=== PATIENT | female | born 1930 | race Caucasian/White ===

== ENCOUNTER 2017-10-06 07:50 | Observation (INO) ==
[2017-10-06] MEDS ORDERED: HYDROMORPHONE 2 MG/ML INJECTION IVP ONE (08:39)
[2017-10-06] MEDS ORDERED: SALINE FLUSH 10ml SYRINGE IVF PRN (08:41)
--- NOTE | 2017-10-06 09:13 | XRay Report ---
Indication: fall PROCEDURE: AP and Lateral views of the Right Femur Encounter: Initial Comparison: None Findings: There is slight cortical irregularity along the lateral cortex just below the greater trochanter seen on the AP view. This could represent a nondisplaced fracture or chronic changes from old trauma. Hip replacement appears intact. Impression: Possible nondisplaced fracture of the lateral cortex just below the greater trochanter. .
--- NOTE | 2017-10-06 09:14 | XRay Report ---
Indication: fall PROCEDURE: XR pelvis 1-2V: Encounter: Initial Comparison: Right femur radiographs from the same time Findings: Cortical irregularity along the lateral margin of the right proximal femur just below the greater trochanter. No additional area concerning for acute fracture. Bilateral hip replacements are intact. Impression: Possible nondisplaced fracture versus changes of old trauma in the lateral subtrochanteric cortex of the right femur. .
--- NOTE | 2017-10-06 09:15 | XRay Report ---
Indication: fall PROCEDURE: XR tib/fib RT 2V: Encounter: Initial Comparison: None Findings: There is no acute fracture, dislocation or malalignment identified. Visualized knee prosthesis appears intact. Impression: No acute osseous abnormality. .
--- NOTE | 2017-10-06 10:12 | Emergency Department Report ---
Fall HPI - General Chief Complaint: Fall Stated Complaint: fall Time Seen by Provider: 10/06/17 08:03 - History of Present Illness HPI Narrative: 7-year-old female with fall this morning. She alleges restroom and fell. She does live at [facility]. Pain in right hip, brought in by EMS on a slider board with knees banded together around the patella. She has external rotation of right leg when the pieces of cloth are removed. No other injury or complaint , except for right shoulder pain. She is able to move the arm, but unable to lift her leg due to the pain. She has had previous right hip replacement and bilateral knee replacements. - Related Data Home Medications Medication Instructions Recorded Confirmed Allopurinol 100 mg PO DAILY #0 09/09/11 10/06/17 Insulin Glargine,Hum.rec.anlog 25 unit SQ AC #0 vial 08/11/14 10/06/17 [Lantus] Acetaminophen [Acetaminophen Extra 500 mg PO TID 09/20/17 10/06/17 Strength] Bumetanide Tab [Bumex Tab] 1 mg PO BID 09/20/17 10/06/17 Carvedilol [Coreg] 12.5 mg PO BIDWM 09/20/17 10/06/17 Cholecalciferol (Vitamin D3) 2,000 unit PO DAILY 09/20/17 10/06/17 [Vitamin D3] Digoxin 125 mcg PO 3XW 09/20/17 10/06/17 Levothyroxine Tab [Synthroid] 100 mcg PO ACB 09/20/17 10/06/17 Mag-Al + Sim Oral Liq [Maalox Plus] 30 ml PO Q4HR PRN 09/20/17 10/06/17 Melatonin/Pyridoxine HCl (B6) 6 mg PO HS 09/20/17 10/06/17 [Melatonin 3 mg Tablet] Multi-Vitamin Plain [Theragran] 1 tab PO DAILY 09/20/17 10/06/17 Nystatin Powder [Mycostatin] 1 applicatio TP PRN PRN 09/20/17 10/06/17 Simvastatin [Zocor] 10 mg PO HS 09/20/17 10/06/17 warfarin 4 mg tablet See Label Instructions PO .COMPLEX 09/24/17 10/06/17 Spironolactone [Aldactone] 25 mg PO 3XW 10/06/17 10/06/17 Previous Rx's Medication Instructions Recorded [place] 5 mg-acetaminophen 325 mg 1 tab PO AM #30 tab 10/03/17 tablet Allergies Allergy/AdvReac Type Severity Reaction Status Date / Time losartan Allergy Verified 10/06/17 07:59 gabapentin AdvReac Intermediate dizziness, Verified 04/23/17 16:44 swelling in feet influenza virus vaccine, AdvReac Intermediate Flu-like Verified 10/06/17 07:59 specific Symptoms carvedilol AdvReac Unknown Nausea and Verified 04/23/17 16:44 Vomiting ciprofloxacin AdvReac Unknown Nausea and Verified 10/06/17 07:59 Vomiting, Weight loss diltiazem AdvReac Unknown Nausea and Verified 10/06/17 07:59 Vomiting indomethacin AdvReac Unknown Nausea and Verified 10/06/17 07:59 Vomiting oxycodone AdvReac Unknown Nausea and Verified 04/23/17 16:44 Vomiting sitagliptin [From Januvia] AdvReac Unknown Nausea and Verified 10/06/17 07:59 Vomiting Sulfa (Sulfonamide AdvReac Unknown Nausea and Unverified 04/23/17 16:44 Antibiotics) Vomiting benazepril AdvReac Nausea and Verified 10/06/17 07:59 vomiting metoprolol [From Toprol XL] AdvReac Nausea and Verified 04/23/17 16:46 vomiting Review of Systems All systems: reviewed and negative except as stated PFSH Patient Stated Medical History Cardiac Arrhythmia Yes: afib Hypertension Yes Other Cardiology Yes: mitral insufficiency Sleep Apnea Yes Diabetes Mellitus Type 2 Yes Hx Renal Disease Yes Osteoarthritis Yes Other Musculoskeletal Yes: gout Cellulitis Yes: lower legs Clinic Medical History (Last Reviewed 09/16/17 @ 16:42 by PRITESH Johnson) Chronic anxiety (Chronic Medical) Sleep apnea (Chronic Medical) Hypothyroid (Chronic Medical) Hypercholesterolemia (Chronic Medical) Type 2 diabetes mellitus (Chronic Medical) Benign essential hypertension (Chronic Medical) Paroxysmal atrial fibrillation (Chronic Medical) Anticoagulated on warfarin (Chronic Medical) Gout (Chronic Medical) Meniere's disease (Chronic Medical) Metabolic syndrome (Chronic Medical) Sleep apnea (Chronic Medical) Chronic kidney disease, stage 3 (Inactive Medical) Congestive heart failure (Inactive Medical) Family History: Family History (Last Reviewed 09/16/17 @ 16:42 by PRITESH Johnson) Sister , Age 93 Anticoagulated on warfarin Paroxysmal atrial fibrillation Mother , Age 90 Heart disease Hip fracture Father , age 65 Myocardial infarction Brother , Age 72 Myocardial infarction - Social History Smoking status: Never smoker Substance use type: does not use Physical Exam - Limitations Limitations: no limitations - General General appearance: alert, in distress (pain) - Normal Exams: Head:: Normocephalic without trauma Chest/Respirations:: Clear all don, with good airflow, and symmetry bilaterally Cardiovascular:: Regular rate and rhythm, without murmur or gallop, Pulses 2+ all extremities, capillary refill, <2 seconds all extremities Abdomen:: Bowel sounds positive, soft, non-tender, non-distended, no hepatosplenomegaly, masses or bruits noted Neurological:: Patient is alert, and oriented, cranial nerves, motor/sensory/ cerebellar, exams w/o gross deficits, to observation Psychiatric:: Patient exhibits, appropriate attention, emotion and affect - Expanded Lower Extremity Exam right Hip/Pelvis exam: Present: tenderness, erythema, external rotation. Absent: full ROM, swelling, abrasion, laceration, ecchymosis, deformity, crepitus, dislocation Course Vital Signs Temperature 97.6 F 10/06/17 07:59 Pulse Rate 74 10/06/17 07:59 Respiratory Rate 19 10/06/17 07:59 Blood Pressure 126/58 10/06/17 07:59 Pulse Oximetry 96 10/06/17 07:59 Temperature 97.6 F 10/06/17 07:59 Pulse Rate 66 10/06/17 09:30 Respiratory Rate 14 10/06/17 09:30 Blood Pressure 115/53 10/06/17 09:30 Pulse Oximetry 92 10/06/17 09:[address] [facility] Narrative Medical decision making narrative: X-ray shows likely intertrochanteric fracture, CT of hip shows definite comminuted fracture. I spoke with orthopedics and this will require quite a involved procedure, they would like to try and heal with rest and minimal weightbearing. Patient was given 0.5 mg Dilaudid for pain management via IV. I spoke with hospitalist who is willing to accept patient and will admit her for care. She has mildly elevated creatinine at 1.8 and mildly elevated bilirubin. - Lab Data Attestation: I reviewed the patient's lab results. Result diagrams: 10/06/17 08:38 10/06/17 08:38 Lab Results 10/06/17 10/06/17 Range/Units 08:38 08:38 WBC 5.1 (4.5-11.0) T/MM3 RBC 3.77 L (4.00-5.20) M/MM3 Hgb 11.9 L (12-16) GM/DL Hct 37.1 (36-46) % MCV 98.4 (80-100) UM3 MCH 31.6 (26-34) UUG MCHC 32.1 (31-37) GM/DL RDW Std Deviation 51.6 H (36.9-50.2) FL Plt Count 78 L (130-400) T/MM3 MPV 10.3 (9.4-12.4) UM3 Neutrophils % (Manual) 61.0 (33-66) % Band Neutrophils % 9.0 H (0-6) % Lymphocytes % (Manual) 14.0 L (23-45) % Monocytes % (Manual) 10.0 H (0-9.0) % Eosinophils % (Manual) 5.0 H (0-4) % Basophils % (Manual) 1.0 (0-2) % Neutrophils # (Manual) 3.1 (1.8-7.7) T/MM3 Band Neutrophils # 0.5 T/MM3 Lymphocytes # (Manual) 0.7 L (1-4.8) T/MM3 Monocytes # (Manual) 0.5 (0-0.8) T/MM3 Eosinophils # (Manual) 0.3 (0-0.5) T/MM3 Basophils # (Manual) 0.1 (0-0.2) T/MM3 RBC Morph Comment Normal Turbidity < 20 (0-20) Sodium 137 (134-144) MEQ/L Potassium 4.1 (3.6-5) MEQ/L Chloride 93 L (98-107) MEQ/L Carbon Dioxide 36 H (22-30) MEQ/L Anion Gap 8 (5-15) MEQ/L BUN 49.0 H (7-17) MG/DL Creatinine 1.8 H (0.7-1.2) MG/DL GFR Calculation 26 BUN/Creatinine Ratio 27 H (6-26) RATIO Glucose 278 H (65-110) MG/DL Calculated Osmolality 287 H (261-280) MOSM/KG Calcium 9.8 (8.4-10.2) MG/DL Total Bilirubin 1.80 H (0.20-1.30) MG/DL Icterus Index < 2 (0-7) AST 55 H (14-36) U/L ALT 41 (9-52) U/L Alkaline Phosphatase 161 H (38-126) U/L Total Protein 8.4 H (6.3-8.2) G/DL Albumin 4.1 (3.5-5.0) G/DL Globulin 4.3 H (2.4-3.6) G/DL Albumin/Globulin Ratio 1.0 L (1.1-2.2) RATIO Specimen Hemolysis < 15 (0-25) - Radiology Data Attestation: I reviewed the patient's radiology results. Disposition Clinical Impression: Hip fracture, right, Renal insufficiency, Paroxysmal atrial fibrillation Disposition: 02 To [facility] Condition: Stable Prescriptions: No Action Allopurinol 100 mg PO DAILY #0 Insulin Glargine,Hum.rec.anlog [Lantus] 25 unit SQ AC #0 vial Multi-Vitamin Plain [Theragran] 1 tab PO DAILY Carvedilol [Coreg] 12.5 mg PO BIDWM Melatonin/Pyridoxine HCl (B6) [Melatonin 3 mg Tablet] 6 mg PO HS Simvastatin [Zocor] 10 mg PO HS Acetaminophen [Acetaminophen Extra Strength] 500 mg PO TID Digoxin 125 mcg PO 3XW Mag-Al + Sim Oral Liq [Maalox Plus] 30 ml PO Q4HR PRN PRN Reason: Epigastric Distress Nystatin Powder [Mycostatin] 1 applicatio TP PRN PRN PRN Reason: Rash Spironolactone [Aldactone] 25 mg PO 3XW Cholecalciferol (Vitamin D3) [Vitamin D3] 2,000 unit PO DAILY Bumetanide Tab [Bumex Tab] 1 mg PO BID Levothyroxine Tab [Synthroid] 100 mcg PO ACB warfarin 4 mg tablet See Label Instructions PO .COMPLEX [place] 5 mg-acetaminophen 325 mg tablet 1 tab PO AM #30 tab Referrals: Ernie Roa MD [Family Provider] - Time of Disposition: 10:14 - Seen By: physician
[2017-10-06 11:03] VITALS: RESP 18
--- NOTE | 2017-10-06 12:18 | History & Physical Report ---
History of Present Illness Date: 10/06/17 Chief complaint: Fall, Right hip pain HPI: Bing is a pleasant 87 yo WF who resides in [facility]. She fell this morning and experienced pain with fall, right hip. She is s/p bilateral hip replacements. She was brought into the ED and found to have a right IT fracture around the previously placed prosthesis. It was not felt that she should be taken to the OR, but was having quite a lot of pain. She has been hospitalized for pain control and monitoring with DC planning when she is stable. She was recently seen by Dr. Roa for wellness visit at facility. she was noted to have some confusion as well as increasing edema from HF. Medications were adjusted to address edema. She does have known CKD, SCr about 1.8-2.0 at baseline. Chart is reviewed for collateral information. Review of Systems ROS unobtainable: due to mental status (Sedated post pain medication. She is able to deny current pain. D/W RN. ) [facility] Patient Stated Medical History Cataracts Yes Cardiac Arrhythmia Yes: afib Hypertension Yes Other Cardiology Yes: mitral insufficiency Sleep Apnea Yes Diabetes Mellitus Type 2 Yes Hx Renal Disease Yes Osteoarthritis Yes Other Musculoskeletal Yes: gout Cellulitis Yes: lower legs Resolved. Clinic Medical History Hip fracture, right (Acute Medical) Renal insufficiency (Acute Medical) Baseline SCr 1.8-2.0. Chronic anxiety (Chronic Medical) Sleep apnea (Chronic Medical) Uses CPAP Hypothyroid (Chronic Medical) Hypercholesterolemia (Chronic Medical) Type 2 diabetes mellitus (Chronic Medical) (IDDM) Benign essential hypertension (Chronic Medical) Paroxysmal atrial fibrillation (Chronic Medical) (Dr. Vargas Flores) Anticoagulated on warfarin (Chronic Medical) Gout (Chronic Medical) Meniere's disease (Chronic Medical) Metabolic syndrome (Chronic Medical) Congestive heart failure HFpEF- Last EF 65% H/O PPM infection BrCA Reviewed 10/06/17- KBruce Surgical History: Negative stress test 2012. Echo 2014 EF 65%, DCCV. Bilateral Blepharoplasty. Bilateral THR. PPM. Mastectomy 1972. Hysterectomy 1967. Cholecystectomy. Left knee. Right knee meniscous repair Family History: Family History (Last Reviewed 10/06/17 @ 10:13 by Donna Young MD) Sister , Age 93 Anticoagulated on warfarin Paroxysmal atrial fibrillation Mother , Age 90 Heart disease Hip fracture Father , age 65 Myocardial infarction Brother , Age 72 Myocardial infarction - Social History Smoking status: Never smoker Substance use type: does not use Alcohol intake frequency: does not drink Housing: retirement Current occupational status: retired (Past RN) Current residence: [facility] Medications Home Medications Medication Instructions Recorded Confirmed Type Allopurinol 100 mg PO DAILY #0 09/09/11 10/06/17 History Insulin Glargine,Hum.rec.anlog 25 unit SQ AC #0 vial 08/11/14 10/06/17 History [Lantus] Acetaminophen [Acetaminophen Extra 500 mg PO TID 09/20/17 10/06/17 History Strength] Bumetanide Tab [Bumex Tab] 1 mg PO BID 09/20/17 10/06/17 History Carvedilol [Coreg] 12.5 mg PO BIDWM 09/20/17 10/06/17 History Cholecalciferol (Vitamin D3) 2,000 unit PO DAILY 09/20/17 10/06/17 History [Vitamin D3] Digoxin 125 mcg PO 3XW 09/20/17 10/06/17 History Levothyroxine Tab [Synthroid] 100 mcg PO ACB 09/20/17 10/06/17 History Mag-Al + Sim Oral Liq [Maalox Plus] 30 ml PO Q4HR PRN 09/20/17 10/06/17 History Melatonin/Pyridoxine HCl (B6) 6 mg PO HS 09/20/17 10/06/17 History [Melatonin 3 mg Tablet] Multi-Vitamin Plain [Theragran] 1 tab PO DAILY 09/20/17 10/06/17 History Nystatin Powder [Mycostatin] 1 applicatio TP PRN PRN 09/20/17 10/06/17 History Simvastatin [Zocor] 10 mg PO HS 09/20/17 10/06/17 History warfarin 4 mg tablet See Label Instructions PO .COMPLEX 09/24/17 10/06/17 History Spironolactone [Aldactone] 25 mg PO 3XW 10/06/17 10/06/17 History Allergies Allergy/AdvReac Type Severity Reaction Status Date / Time losartan Allergy Verified 10/06/17 07:59 gabapentin AdvReac Intermediate dizziness, Verified 04/23/17 16:44 swelling in feet influenza virus vaccine, AdvReac Intermediate Flu-like Verified 10/06/17 07:59 specific Symptoms carvedilol AdvReac Unknown Nausea and Verified 04/23/17 16:44 Vomiting ciprofloxacin AdvReac Unknown Nausea and Verified 10/06/17 07:59 Vomiting, Weight loss diltiazem AdvReac Unknown Nausea and Verified 10/06/17 07:59 Vomiting indomethacin AdvReac Unknown Nausea and Verified 10/06/17 07:59 Vomiting oxycodone AdvReac Unknown Nausea and Verified 04/23/17 16:44 Vomiting sitagliptin [From Januvia] AdvReac Unknown Nausea and Verified 10/06/17 07:59 Vomiting Sulfa (Sulfonamide AdvReac Unknown Nausea and Unverified 04/23/17 16:44 Antibiotics) Vomiting benazepril AdvReac Nausea and Verified 10/06/17 07:59 vomiting metoprolol [From Toprol XL] AdvReac Nausea and Verified 04/23/17 16:46 vomiting Exam Vital Signs: Temperature 98.6 F 10/06/17 11:01 Pulse Rate 69 10/06/17 11:01 Respiratory Rate 18 10/06/17 11:01 Blood Pressure 130/73 10/06/17 11:01 Pulse Oximetry 96 10/06/17 11:01 Height/Weight/BMI: Height 1.7 m Weight 77 kg Body Mass Index 26.6 - Constitutional Present: no acute distress, cooperative, somnolent (Sedate post pain medications ) - Routine HEENT Exam Head: Present: normocephalic, atraumatic. Absent: abrasion, laceration Eye: Absent: periorbital swelling, periorbital tenderness ENT: Present: mucous membranes moist - Routine Neck Exam Present: full ROM. Absent: normal carotid upstroke (Mild carotid pulsation c/w valvular heart disease.) - Routine Respiratory Exam Present: decreased breath sounds, CTA bilaterally, distant breath sounds. Absent: rales, rhonchi, wheezes, crackles - Routine Cardiovascular Exam Present: RRR, S1, S2, murmur (SM 1/6, 1/4 DM at the left axillary line). Absent : S3, S4, bradycardia, tachycardia - Routine Abdominal Exam Present: soft, non distended, non tender - Routine Extremities Exam Present: edema (Mild edema both LE most consistent with Venous insufficiency), pulses intact, tenderness - Routine Skin Exam Present: intact, dry, warm - Routine Neurological Exam Present: altered mental status (sedate) - Routine Psychiatric Exam Present: cooperative, unable to assess Results - Labs CBC & Chem 7: 10/06/17 08:38 10/06/17 08:38 - Impressions PROCEDURE: XR tib/fib RT 2V: Encounter: Initial Comparison: None Findings: There is no acute fracture, dislocation or malalignment identified. Visualized knee prosthesis appears intact. Impression: No acute osseous abnormality. . PROCEDURE: XR pelvis 1-2V: Encounter: Initial Comparison: Right femur radiographs from the same time Findings: Cortical irregularity along the lateral margin of the right proximal femur just below the greater trochanter. No additional area concerning for acute fracture. Bilateral hip replacements are intact. Impression: Possible nondisplaced fracture versus changes of old trauma in the lateral subtrochanteric cortex of the right femur. . PROCEDURE: AP and Lateral views of the Right Femur Encounter: Initial Comparison: None Findings: There is slight cortical irregularity along the lateral cortex just below the greater trochanter seen on the AP view. This could represent a nondisplaced fracture or chronic changes from old trauma. Hip replacement appears intact. Impression: Possible nondisplaced fracture of the lateral cortex just below the greater trochanter. . Assessment and Plan (1) Hip fracture, right Current visit: Yes Status: Acute (2) Mitral regurgitation Current visit: Yes Status: Acute (3) Venous insufficiency of both lower extremities Current visit: Yes Status: Chronic (4) Hypergammaglobulinemia, unspecified Problem details: Unknown etiology Current visit: Yes Status: Chronic (5) Renal insufficiency Problem details: I suspect this is due to diuretics in the presence of Mitral Regurgitation, and lower extremity venous insufficiency. Current visit: Yes Status: Acute (6) Benign essential hypertension Current visit: No Status: Chronic (7) Hypothyroid Current visit: No Status: Chronic (8) Sleep apnea Current visit: No Status: Chronic Assessment and Plan: Impression: Right IT Fracture around previously placed THR Acute pain from fall Acute on chronic altered mental status Fall at [facility] HF, recent EF unknown, with fluid overload. Paroxysmal Atrial Fib. S/P PPM DM2, IDDM HTN HLD Hypothyroid COSMO with CPAP use. Plan: 10/06/17 Dr. Lewis covering for Hospitalists *Admit observation for now. Pain control/DC planning *Ortho discussed in ER. Potential supportive care. Avoid OR due to complex procedure if at all possible. Will consult for further assessment in AM. *Pt. sedated post dilaudid. Back down to Morphine. Continue scheduled APAP. [place] PRN. Monitor mental status *HF,fluid overload, CKD- Suspect worsened EF given clinical edema. Continue Bumex, 3x/week Aldactone and dig. Continue Coreg- not allergic- takes at home. Avoiding LUIS E/ARB given allergy, CKD. Place Rouse PRN if unable to void comfortably. *Continue home Lantus. Monitor accuchecks. Add SSI only if indicated. *Continue remainder of supportive meds. If patient remains somnolent, consider CT of the head. Pt. is on Warfarin- obtain stat INR and consult pharmacy. She may need to be changed to ASA given function decline prior to this event. If she does need surgical repair, will need CV clearance. Order tele for monitoring given increased risk for coronary issues. *need to confirm Code Status-pt is unable to discuss. DVT Prophylaxis: TIFFANIE Ware Coumadin - Time spent with patient Time with patient PN: 25 minutes - Physician Narriative Physician: karen (Joshua) Hospital Course Summary Disclaimer: The visit summary below is not to be considered part of the above Progress Note. Hospital Course: 10/06/17 12:47 Plan: 10/06/17 Dr. Lewis covering for Hospitalists *Admit observation for now. Pain control/DC planning *Ortho discussed in ER. Potential supportive care. Avoid OR due to complex procedure if at all possible. Will consult for further assessment in AM. *Pt. sedated post dilaudid. Back down to Morphine. Continue scheduled APAP. [place] PRN. Monitor mental status *HF,fluid overload, CKD- Suspect worsened EF given clinical edema. Continue Bumex, 3x/week Aldactone and dig. Continue Coreg- not allergic- takes at home. Avoiding LUIS E/ARB given allergy, CKD. Place Rouse PRN if unable to void comfortably. *Continue home Lantus. Monitor accuchecks. Add SSI only if indicated. *Continue remainder of supportive meds. If patient remains somnolent, consider CT of the head. Pt. is on Warfarin- obtain stat INR and consult pharmacy. She may need to be changed to ASA given function decline prior to this event. If she does need surgical repair, will need CV clearance. Order tele for monitoring given increased risk for coronary issues. *need to confirm Code Status-pt is unable to discuss. 10/06/17 12:47 Impression: Right IT Fracture around previously placed THR Acute pain from fall Acute on chronic altered mental status Fall at [facility] HF, recent EF unknown, with fluid overload. Paroxysmal Atrial Fib. S/P PPM DM2, IDDM HTN HLD Hypothyroid COMSO with CPAP use.
[2017-10-06] MEDS ORDERED: MAG-AL + SIM ORAL LIQUID 30ml PO PRN (12:30)
[2017-10-06] MEDS ORDERED: WARFARIN - PHARMACY CONSULT MC ONE (12:31)
[2017-10-06] MEDS ORDERED: MORPHINE SULFATE 2mg INJECTION IVP PRN (12:33)
[2017-10-06] MEDS ORDERED: ONDANSETRON 4 MG/2 ML INJECTION IVP PRN (12:34)
[2017-10-06] MEDS ORDERED: SENNA + DOCUSATE TABLET PO PRN (12:35)
[2017-10-06] MEDS: INSULIN ASPART 100unit/ml INJECTION SQ PRN ×2 (15:08→21:16)
[2017-10-06] MEDS: ACETAMINOPHEN 500 MG TABLET PO SCH ×2 (15:10→21:15)
[2017-10-06] MEDS ORDERED: WARFARIN 3 MG TABLET PO ONE (15:32)
--- NOTE | 2017-10-06 15:53 | Pharmacy Consult ---
Pharmacy Consult-Warfarin - Laboratory Information 10/06/17 13:01 INR 2.57 H - Consult Information 87 y.o. female with history of a. fib and chronic anticoagulation with Warfarin. Home warfarin dose = 4 mg po on Sat, Mon, Wed, Sat and 2 mg on , and Sat. goal INR range = 2.0 to 3.0 Will give Warfarin 3 mg po x 1 dose today Pharmacy will monitor and dose. Thank you for the Warfarin protocol, Winifred Gonzalez RPh
[2017-10-06] MEDS: CEFTRIAXONE 1 G in NS 100 ML IV SCH (17:34)
[2017-10-06] MEDS: INSULIN GLARGINE 100unit/ml INJECTION SQ SCH (17:53)
[2017-10-06] MEDS: CARVEDILOL 12.5 MG TABLET PO SCH (17:53)
[2017-10-06] MEDS ORDERED: MELATONIN 5 MG TABLET PO SCH (21:00)
[2017-10-06] MEDS ORDERED: SIMVASTATIN 10 MG TABLET PO SCH (21:00)
[2017-10-06] MEDS: DOCUSATE SODIUM 100 MG CAPSULE PO SCH (21:16)
[2017-10-06] MEDS: BUMETANIDE 1 MG TABLET PO SCH (21:16)
[2017-10-06] MEDS: HYDROCODONE/APAP 5mg/325mg TABLET PO PRN (23:13)
[2017-10-07] MEDS: INSULIN GLARGINE 100unit/ml INJECTION SQ SCH ×2 (05:55→13:08)
[2017-10-07] MEDS: INSULIN ASPART 100unit/ml INJECTION SQ PRN ×2 (05:55→13:07)
[2017-10-07] MEDS ORDERED: LEVOTHYROXINE 100 MCG TABLET PO SCH (06:30)
--- NOTE | 2017-10-07 07:31 | Pharmacy Consult ---
Pharmacy Consult-Warfarin - Laboratory Information 10/06/17 10/07/17 13:01 04:34 INR 2.57 H 2.49 H - Consult Information 87 y.o. female with history of a. fib and chronic anticoagulation with Warfarin. Home warfarin dose = 4 mg po on Sun, Mon, Wed, Fri and 2 mg on , and Sat. goal INR range = 2.0 to 3.0. Date INR Dose 10/06 2.57 3 mg 10/07 2.49 4 mg The INR is within the goal range of 2.0-3.0. I ordered Warfarin 4 mg by mouth today at noon. The pharmacy will continue to monitor the INR's and will adjust the Warfarin accordingly. Thank you for the Warfarin Dosing Protocol, Neftali Tobin, Pharmacist.
--- NOTE | 2017-10-07 07:47 | CT Scan Report ---
Indication: fall PROCEDURE: CT hip RT wo con: Encounter: Initial Comparison: Hip and femur radiographs from today Technique: Axial noncontrast CT imaging through the right hip was performed with coronal and sagittal two-dimensional reformats. Three-dimensional surface shaded volume rendered imaging was also created and reviewed. Automated Exposure Control and Iterative Reconstruction dose reducing techniques were utilized. Findings: The fracture suspected by CT in the greater trochanteric area of the right femur is confirmed. This is minimally displaced and extends from the inferior margin of the greater trochanter along the anterior cortex of the subtrochanteric diaphysis best seen on the axial images. No additional acute fractures seen. No dislocation. One acetabular screw protrudes into the soft tissues laterally. The other acetabular screw protrudes into the medial aspect of the right pelvis there is would be presumably chronic findings. Streak artifact from the metal. No focal hematoma appreciated. Impression: Nondisplaced periprosthetic fracture of the greater trochanter extending into the intertrochanteric cortex anteriorly and into the diaphysis. There is a preliminary report by [employer] [facility] radiologic. .
[2017-10-07] MEDS ORDERED: MULTI-VITAMIN PLAIN TABLET PO SCH (09:00)
[2017-10-07] MEDS ORDERED: ALLOPURINOL 100 MG TABLET PO SCH (09:00)
[2017-10-07] MEDS ORDERED: SPIRONOLACTONE 25 MG TABLET PO SCH (09:00)
[2017-10-07] MEDS: DOCUSATE SODIUM 100 MG CAPSULE PO SCH (10:01)
[2017-10-07] MEDS: BUMETANIDE 1 MG TABLET PO SCH (10:01)
[2017-10-07] MEDS: ACETAMINOPHEN 500 MG TABLET PO SCH ×2 (10:01→14:28)
[2017-10-07] MEDS: CARVEDILOL 12.5 MG TABLET PO SCH (10:02)
[2017-10-07] MEDS: HYDROCODONE/APAP 5mg/325mg TABLET PO PRN (10:02)
[2017-10-07] MEDS ORDERED: HYDROCODONE/APAP 5mg/325mg TABLET PO PRN (11:25)
--- NOTE | 2017-10-07 11:28 | Progress Note ---
- Date 10/07/17 Patient is resting in bed. She does have continued pain from yesterday and states that the medications are not covering her pain well enough. She was given Dilaudid IV yesterday which made her quite sleepy. However the Keaau are not controlling her pain. She has not tried to bear weight or ambulate. No other concerns at this time, tolerating diet. Objective Vital signs: Temperature 98.5 F 10/07/17 07:55 Pulse Rate 70 10/07/17 08:00 Respiratory Rate 18 10/07/17 07:55 Blood Pressure 136/67 10/07/17 07:55 Pulse Oximetry 98 10/07/17 07:55 Rhythm: Normal Sinus Rhythm Height/Weight/BMI: Height 1.7 m Weight 76.6 kg Body Mass Index 26.6 - Constitutional Present: mild distress - Routine HEENT Exam Head: Present: normocephalic - Routine Respiratory Exam Present: CTA bilaterally. Absent: wheezes - Routine Cardiovascular Exam Present: RRR. Absent: murmur - Routine Abdominal Exam Present: soft, normoactive bowel sounds, non distended. Absent: tenderness - Routine Extremities Exam Present: normal capillary refill - Routine Musculoskeletal Exam Musculoskeletal: Present: other (significant tenderness along the greater trochanter, patient is resting the leg in external rotation.) Results - Labs CBC & Chem 7: 10/07/17 04:34 10/07/17 04:34 Microbiology Results: Microbiology 10/06/17 14:00 Urine, Voided (Cc/notcc) Urine Culture - Preliminary Gram Negative Jean Assessment and Plan Assessment and Plan: Impression: Right IT Fracture around previously placed THR Acute pain from fall Acute on chronic altered mental status Fall at [facility] HF, recent EF unknown, with fluid overload. Paroxysmal Atrial Fib. S/P PPM DM2, IDDM HTN HLD Hypothyroid COSMO with CPAP use. Plan: 10/07/2017 Pain control has been an issue overnight. Increasing Keaau to 1-2 tablets every 4 hours. We'll try to avoid using Dilaudid as it is so sedating for her. IRU consult with PT OT eval. Looking for appropriate placement. Patient voiding well overnight, will continue to reevaluate for full if needed. Blood sugar checks and Lantus as needed. INR 2.8 today, pharmacy consult. Orthostatic continue to follow. Patient is DO NOT RESUSCITATE Recheck labs in a.m. Alfonso Garner [facility] Hospital Course Summary Disclaimer: The visit summary below is not to be considered part of the above Progress Note. 10/07/2017 Pain control has been an issue overnight. Increasing Keaau to 1-2 tablets every 4 hours. We'll try to avoid using Dilaudid as it is so sedating for her. IRU consult with PT OT eval. Looking for appropriate placement. Patient voiding well overnight, will continue to reevaluate for full if needed. Blood sugar checks and Lantus as needed. INR 2.8 today, pharmacy consult. Orthostatic continue to follow. Patient is DO NOT RESUSCITATE Recheck labs in [facility] Alfonso Garner [facility] Hospital Course: 10/06/17 12:47 Plan: 10/06/17 Dr. Lewis covering for Hospitalists *Admit observation for now. Pain control/DC planning *Ortho discussed in ER. Potential supportive care. Avoid OR due to complex procedure if at all possible. Will consult for further assessment in AM. *Pt. sedated post dilaudid. Back down to Morphine. Continue scheduled APAP. Keaau PRN. Monitor mental status *HF,fluid overload, CKD- Suspect worsened EF given clinical edema. Continue Bumex, 3x/week Aldactone and dig. Continue Coreg- not allergic- takes at home. Avoiding LUIS E/ARB given allergy, CKD. Place Rouse PRN if unable to void comfortably. *Continue home Lantus. Monitor accuchecks. Add SSI only if indicated. *Continue remainder of supportive meds. If patient remains somnolent, consider CT of the head. Pt. is on Warfarin- obtain stat INR and consult pharmacy. She may need to be changed to ASA given function decline prior to this event. If she does need surgical repair, will need CV clearance. Order tele for monitoring given increased risk for coronary issues. *need to confirm Code Status-pt is unable to discuss. 10/06/17 12:47 Impression: Right IT Fracture around previously placed THR Acute pain from fall Acute on chronic altered mental status Fall at LTCF HF, recent EF unknown, with fluid overload. Paroxysmal Atrial Fib. S/P PPM DM2, IDDM HTN HLD Hypothyroid COSMO with CPAP use. 10/07/17 11:36 10/07/2017 luis alberto: 10/07/2017 Pain control has been an issue overnight. Increasing Keaau to 1-2 tablets every 4 hours. We'll try to avoid using Dilaudid as it is so sedating for her. IRU consult with PT OT jennie. Looking for appropriate placement. Patient voiding well overnight, will continue to reevaluate for full if needed. Blood sugar checks and Lantus as needed. INR 2.8 today, pharmacy consult. Orthostatic continue to follow. Patient is DO NOT RESUSCITATE Recheck labs in a.kim. Alfonso Garner M.D.
[2017-10-07] MEDS ORDERED: DIGOXIN 125 MCG TABLET PO SCH (12:30)
[2017-10-07 13:30] VITALS: BMI 26.4
[2017-10-07 15:14] VITALS: BP 133/69; PULSE 67; TEMP 98; O2SAT 99
[2017-10-07] MEDS: CEFTRIAXONE 1 G in NS 100 ML IV SCH (15:15)
== END 2017-10-07 16:15 ==
LOC: ED 07:50 → MED 07:50 → SUATTDRO 10:08 → MED 10:55
PROVIDERS: ADMIT Internal Medicine; ATTEND Family Medicine

== ENCOUNTER 2017-10-07 16:20 | Inpatient (IN) ==
[2017-10-07] MEDS ORDERED: MAG-AL + SIM ORAL LIQUID 30ml PO PRN (16:52)
[2017-10-07] MEDS ORDERED: ONDANSETRON 4 MG/2 ML INJECTION IVP PRN (16:52)
--- NOTE | 2017-10-07 16:58 | IRU History & Physical Report ---
HPI IRU Date: Chief complaint: My hip and leg hurt HPI: Ms. Chaudhary is a very pleasant 87 -year-old female referred by Dr. Alfosno Garner. Her primary care physician is Dr. Ernie Roa. She has been residing at [facility] and unfortunately fell on 10/06/2017. The patient states that she was getting up to brush her teeth. She was trying to get around a chair and unfortunately her foot got hooked in the chair. She fell at that time. She states she did not hit her head and there was no loss of consciousness. She recalls the entire event. She had immediate pain in the right hip. She has been at the nursing facility for about a year with her . She was in assisted living until August 2017 at which time she was moved to the healthcare portion. She has had previous bilateral hip replacements. She was brought to the emergency department and found to have a periprosthetic fracture in the right hip. This was in the right intertrochanteric area. It was not felt that she should undergo surgery at this time. Patient was [facility] 10/06/2017 for pain management and stabilization. I spoken with Dr. Rdz and he indicates she can have essentially toe-touch weightbearing/flatfoot weightbearing for balance. He indicates that if there is sudden increase in pain he would reconsider surgery. She has had some recent confusion, possibly related to pain medication. Hart did not seem to be holding her adequately and she was therefore given some Dilaudid. Unfortunately that made her quite sleepy. She does have history of chronic kidney disease with creatinine around 1.8. Estimated GFR is 26 mL per minute placing her in stage IV chronic kidney disease. In addition, she has had low platelets for uncertain reasons. Her admission platelet count was 78,000 and today it is 77,000. Hemoglobin has been stable at around 11.9 g percent. 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 Her serum globulin levels have been running 4.3 and 4.2. The patient also has history of atrial fibrillation. She is on warfarin and her INR is therapeutic. Her current electrocardiogram shows atrial fibrillation with controlled ventricular response and no evidence of acute process. According to her records, she underwent an echocardiogram in 2013 demonstrating an ejection fraction of 65%. She also had a negative stress test in 2012. Initial urinalysis demonstrated presence of pyuria. Culture has grown Escherichia coli and now she is on intravenous Rocephin for her urinary tract infection. She has had difficulty maintaining nonweightbearing status on the right leg. She is at risk for several medical complications including uncontrolled pain, bleeding in view of the thrombocytopenia plus being on warfarin, plus further confusion possibly related to an underlying urinary tract infection. She is also at risk for hyperglycemia or hypoglycemia in view of the variable work requirements involved with rehabilitation. I specifically discussed with the patient her desires regarding resuscitation. She states that she does not wish to have CPR nor intubation nor any other resuscitation in the event of an arrest. Her wishes will be followed. Her prior level of functioning is as follows: She was modified independent functioning for eating and grooming as well as bed/chair/wheelchair transfers, toilet transfers and walking with a rolling walker. She required minimum assistance for bathing and was independent for upper and lower body dressing and toileting. Her current level of function is as follows: She is modified independent level for eating but requires moderate assistance for grooming, total assistance for bathing and lower body dressing as well as toileting and bed/chair/wheelchair transfers. She is supervision level for upper body dressing and total assistance for toilet transfers. She is unable to ambulate at the present time as she is nonweightbearing on the right leg and has difficulty remembering to maintain that nonweightbearing status. The following medical conditions are noted and require active monitoring and/or management: 1. UTI with E. Coli. She currently is on intravenous Rocephin. She is at risk for sepsis, further confusion and other typical competitions from urinary tract infection. 2. Thrombocytopenia: She is at risk for acute blood loss anemia at the fracture site as well as bleeding elsewhere in view of her low platelets plus the use of warfarin. 3. Episodic confusion: She has had difficulty retaining information since the fracture. This may be due to the urinary tract infection versus pain medication. She is at risk for further confusion and is therefore a high fall risk. 4. Atrial fibrillation on warfarin with therapeutic INR: As noted above, she'll require active monitoring of her INR and adjustment in warfarin doses to prevent over anticoagulation and avoid TIA/stroke. 5. Diabetes mellitus: She is currently on oral agents as well as long-acting insulin. While on acute care her blood sugars have been running over 200 typically. She is at risk for hyperglycemia or hypoglycemia in view of the varying work requirements and likely variable amounts of intake in view of her pain. She will require close monitoring of her blood sugars. The following therapies will be needed: 1. Physical therapy: for transfers and ambulation and stairs. 2. Occupational therapy: for ADL's and transfers. 3. Medical management: for the above conditions. 4. 24 hour Rehabilitation Nursing to monitor and address the following: Close monitoring for evidence of further confusion, adequate pain control and management, monitoring of INR and adjustment in warfarin doses and to monitor progress of her urinary tract infection along with administration of intravenous Rocephin. She will also require close monitoring of her blood sugars. [facility] Patient Stated Medical History Cataracts Yes Cardiac Arrhythmia Yes: afib Hypertension Yes Other Cardiology Yes: mitral insufficiency Sleep Apnea Yes Diabetes Mellitus Type 2 Yes Hx Renal Disease Yes Osteoarthritis Yes Other Musculoskeletal Yes: gout Cellulitis Yes: lower legs Clinic Medical History (Last Reviewed 09/16/17 @ 16:42 by Shantell Garnica Ml) Hip fracture, right (Acute Medical) Renal insufficiency (Acute Medical) I suspect this is due to diuretics in the presence of Mitral Regurgitation, and lower extremity venous insufficiency. Mitral regurgitation (Acute Medical) Venous insufficiency of both lower extremities (Chronic Medical) Hypergammaglobulinemia, unspecified (Chronic Medical) Unknown etiology Chronic anxiety (Chronic Medical) Sleep apnea (Chronic Medical) Hypothyroid (Chronic Medical) Hypercholesterolemia (Chronic Medical) Type 2 diabetes mellitus (Chronic Medical) Benign essential hypertension (Chronic Medical) Paroxysmal atrial fibrillation (Chronic Medical) Anticoagulated on warfarin (Chronic Medical) Gout (Chronic Medical) Meniere's disease (Chronic Medical) Metabolic syndrome (Chronic Medical) Sleep apnea (Chronic Medical) Chronic kidney disease, stage 3 (Inactive Medical) Congestive heart failure (Inactive Medical) Surgical History: Negative stress test 2012. Echo 2014 EF 65%, DCCV. Bilateral Blepharoplasty. Bilateral THR. PPM. Mastectomy 1972. Hysterectomy 1967. Cholecystectomy. Left knee. Right knee meniscous repair Family History: Family History (Last Reviewed 10/06/17 @ 12:24 by Berenice Marie APRN) Sister , Age 93 Anticoagulated on warfarin Paroxysmal atrial fibrillation Mother , Age 90 Heart disease Hip fracture Father , age 65 Myocardial infarction Brother , Age 72 Myocardial infarction Family History Updates: Patient has 3 children the lowest of which has health issues which are not specified. 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 Current residence: [place] Social history: She is . Her suffers from Alzheimer's dementia. Her initially formed and then finish his education after they were . He then taught at [employer] in [place] [employer] and business. The patient is a retired registered nurse having worked in [place] at both hospitals. Review of Systems - Constitutional Constitutional: Absent: anorexia, chills, fatigue, fever(s), headache(s), lethargy, malaise, night sweats, weakness, weight gain, weight loss - EENMT Eyes: Absent: blurry vision, change in vision, diplopia Mouth/Throat: Absent: changes in swallowing, painful swallowing, change in taste , bleeding gums, change in voice - Cardiovascular Cardiovascular: Present: heart murmur. Absent: chest pain, palpitations, syncope, dyspnea on exertion, orthopnea, edema, cyanosis Rhythm: Present: abnormal rhythm (history of atrial fibrillation) Vascular: Absent: intermittent claudication, pedal edema, unilateral swelling - Respiratory Respiratory: Present: cough (she has noted a dry cough recently.). Absent: dyspnea, hemoptysis, dyspnea on exertion, wheezing, pain on inspiration, chest congestion, excessive phlegm production - Gastrointestinal Gastrointestinal: Present: constipation. Absent: abdominal pain, change in bowel habits, diarrhea, dyspepsia, dysphagia, early satiety, hematochezia, melena, nausea, vomiting - Genitourinary Genitourinary: Present: urinary incontinence (she currently has a catheter. She reports incontinence prior to this and does wear a pad.) - Musculoskeletal Musculoskeletal: Absent: abnormal gait, arthralgias, back pain, joint swelling, limited range of motion, muscle weakness - Integumentary/Breasts Integumentary: Absent: alopecia, erythema, lesions, pruritus, rash, jaundice - Neurological Neurological: Present: memory loss (she seems to have a bit of short-term memory loss as we speak today.). Absent: abnormal gait, abnormal movements, abnormal speech, confusion, convulsions, dizziness, focal weakness, frequent falls, headache(s), loss of vision, numbness, paresthesias, tremor(s) - Psychiatric Psychiatric: Absent: abnormal sleep pattern, anxiety, depression - Endocrine Endocrine: Absent: cold intolerance, flushing, heat intolerance, palpitations - Hematologic/Lymphatic Hematologic/Lymphatic: Absent: easy bleeding, easy bruising, lymphadenopathy - Allergic/Immunologic Allergic/Immunologic: Absent: urticaria Medications Home Medications Medication Instructions Recorded Confirmed Type Allopurinol 100 mg PO DAILY #0 09/09/11 10/06/17 History Insulin Glargine,Hum.rec.anlog 52 unit SQ DAILY #0 vial 08/11/14 10/07/17 History [Lantus] Acetaminophen [Acetaminophen Extra 500 mg PO TID 09/20/17 10/06/17 History Strength] Bumetanide Tab [Bumex Tab] 1 mg PO BID 09/20/17 10/06/17 History Carvedilol [Coreg] 12.5 mg PO BIDWM 09/20/17 10/06/17 History Cholecalciferol (Vitamin D3) 2,000 unit PO DAILY 09/20/17 10/06/17 History [Vitamin D3] Digoxin 125 mcg PO 3XW 09/20/17 10/06/17 History Levothyroxine Tab [Synthroid] 100 mcg PO ACB 09/20/17 10/06/17 History Mag-Al + Sim Oral Liq [Maalox Plus] 30 ml PO Q4HR PRN 09/20/17 10/06/17 History Melatonin/Pyridoxine HCl (B6) 6 mg PO HS 09/20/17 10/06/17 History [Melatonin 3 mg Tablet] Multi-Vitamin Plain [Theragran] 1 tab PO DAILY 09/20/17 10/06/17 History Nystatin Powder [Mycostatin] 1 applicatio TP PRN PRN 09/20/17 10/06/17 History Simvastatin [Zocor] 10 mg PO HS 09/20/17 10/06/17 History warfarin 4 mg tablet See Label Instructions PO .COMPLEX 09/24/17 10/06/17 History Spironolactone [Aldactone] 25 mg PO 3XW 10/06/17 10/06/17 History Allergies Allergy/AdvReac Type Severity Reaction Status Date / Time losartan Allergy Verified 10/06/17 07:59 gabapentin AdvReac Intermediate dizziness, Verified 04/23/17 16:44 swelling in feet influenza virus vaccine, AdvReac Intermediate Flu-like Verified 10/06/17 07:59 specific Symptoms carvedilol AdvReac Unknown Nausea and Verified 04/23/17 16:44 Vomiting ciprofloxacin AdvReac Unknown Nausea and Verified 10/06/17 07:59 Vomiting, Weight loss diltiazem AdvReac Unknown Nausea and Verified 10/06/17 07:59 Vomiting indomethacin AdvReac Unknown Nausea and Verified 10/06/17 07:59 Vomiting oxycodone AdvReac Unknown Nausea and Verified 04/23/17 16:44 Vomiting sitagliptin [From Januvia] AdvReac Unknown Nausea and Verified 10/06/17 07:59 Vomiting Sulfa (Sulfonamide AdvReac Unknown Nausea and Unverified 04/23/17 16:44 Antibiotics) Vomiting benazepril AdvReac Nausea and Verified 10/06/17 07:59 vomiting metoprolol [From Toprol XL] AdvReac Nausea and Verified 04/23/17 16:46 vomiting Results IRU - Labs Labs: I personally reviewed the CT scan of her hip demonstrating the fracture. I have reviewed the inpatient record including laboratory findings and progress notes etc. Exam - Constitutional Present: moderate distress, well nourished, well developed, average body habitus , cooperative - Routine HEENT Exam Head: Present: normocephalic, atraumatic. Absent: cushingoid faces, abrasion, laceration, hematoma Eye: Present: EOMI, PERRL. Absent: conjunctival icterus, scleral injection, periorbital swelling, nystagmus ENT: Present: mucous membranes moist, oropharynx clear - Routine Neck Exam Present: supple, full ROM, trachea midline. Absent: lymphadenopathy, thyromegaly, tenderness, swelling - Routine Chest/Breast/Axilla Exam Chest wall: Absent: tenderness, mass Axillae: Absent: lymphadenopathy, mass - Routine Respiratory Exam Present: CTA bilaterally. Absent: accessory muscle use, decreased breath sounds , prolonged expiratory phase, rales, respiratory distress, rhonchi, stridor, wheezes, crackles, distant breath sounds - Routine Cardiovascular Exam Present: S1, S2, murmur (she has a systolic murmur left sternal border), irregularly irregular. Absent: gallop, S3, S4, click, irregular rhythm - Routine Abdominal Exam Present: soft, normoactive bowel sounds, non distended, non tender. Absent: rebound, guarding, firm, rigid, organomegaly, mass, hernia, wound - Routine Extremities Exam Present: edema (trace edema), non tender, pulses intact, normal capillary refill. Absent: cyanosis, clubbing - Routine Back/Spine/Pelvis Exam Back/Spine: Present: full ROM. Absent: scoliosis, kyphosis Comments: Substantial pain is noted with any movement of the right leg - Routine Skin Exam Present: intact, dry, warm. Absent: cyanosis, erythema, pallor, mottling, petechiae, urticaria, lesions, jaundice - Routine Neurological Exam Present: alert, oriented X3, CN II-XII intact, moving all extremities, normal speech - Routine Psychiatric Exam Present: normal affect, normal thought process, cooperative, good insight, good judgment. Absent: depressed, anxious Comments: Question memory. Uncertain if this is a short-term issue with regard to pain medication and UTI versus long-term issue. Sepsis Assessment - Evaluation Severe Sepsis: none seen IRU A/P (1) Hip fracture, right Qualifiers: Encounter type: subsequent encounter Fracture type: closed Fracture healing: with routine healing Qualified Code(s): S72.001D - Fracture of unspecified part of neck of right femur, subsequent encounter for closed fracture with routine healing Current visit: No Status: Acute Patient has required additional Dilaudid for pain management. Unfortunately this has caused some somnolence and confusion. She will require close monitoring and adjustment of pain medications as tolerated. In addition she will require a multidisciplinary approach with physical therapy, occupational therapy, 24 hour rehabilitation nursing with medical supervision. (2) Type 2 diabetes mellitus Qualifiers: Diabetes mellitus complication status: with hyperglycemia Diabetes mellitus long chain beamer insulin use: with long chain beamer use Qualified Code(s): E11.65 - Type 2 diabetes mellitus with hyperglycemia; Z79.4 - intermediate manager (current) use of insulin; Z79.4 - intermediate manager (current) use of insulin; Z79.4 - intermediate manager ( current) use of insulin; Z79.4 - intermediate manager (current) use of insulin Current visit: No Status: Chronic Her blood sugars have in general been over 200 on the acute side. She is at risk of hyperglycemia and hypoglycemia in view of variable energy output and variable intake during the rehabilitation process. This will be monitored carefully. (3) UTI (urinary tract infection), bacterial Current visit: Yes Status: Acute Patient is currently on Rocephin intravenously for a urinary tract infection with Escherichia coli. She is at risk for worsening urinary tract symptoms, sepsis, fever etc. (4) Benign essential hypertension Current visit: No Status: Chronic (5) Paroxysmal atrial fibrillation Current visit: No Status: Chronic Currently her INR is therapeutic. She does have thrombocytopenia and for this reason is at risk of bleeding. Pharmacy will monitor and dose the warfarin. (6) Thrombocytopenia Current visit: Yes Status: Acute Platelet count has been around 77,000. She will be monitored closely for evidence of acute blood loss. DVT Prophylaxis: SCD's Resuscitation Status: Do Not Resuscitate - Course Hospital Course: Fadi Álvarez MD: - Interventions to Obtain Goals PT Treatment Plan: Balance/Proprioception, Functional Activities, Gait Training , Patient/Family Education OT Treatment Plan: ADL (Basic Care), Balance Training, Pt./Family Education Goals Progress/Modifications: An intensive individualized program of physical therapy, occupational therapy and 24 rehabilitation nursing monitoring will be undertaken. The patient is at risk for falls, uncontrolled pain, worsening urinary tract infection symptoms and diabetes to be out of control. This requires medical supervision as well. It is anticipated the patient will be able to return to her former living situation.
--- NOTE | 2017-10-07 17:10 | IRU 24Hr Post Admit Eval ---
24 Hr Post Admission Physical - Relevant Changes Relevant Changes: No Reviewed: I have reviewed the patient's information and concur with the finding and results of the pre-admission screen. Certification: I certify the patient for rehabilitation. - Patient Condition (1) Hip fracture, right Status: Acute Qualifiers: Encounter type: subsequent encounter Fracture type: closed Fracture healing: with routine healing Qualified Code(s): S72.001D - Fracture of unspecified part of neck of right femur, subsequent encounter for closed fracture with routine healing Code(s): S72.001A - Fracture of unspecified part of neck of right femur, initial encounter for closed fracture Classification: Present on IRF Admission, IRF Tx That Should Address Diagnosis, Diagnosis Requiring Medical Follow Up (2) Type 2 diabetes mellitus Status: Chronic Qualifiers: Diabetes mellitus complication status: with hyperglycemia Diabetes mellitus mcfp insulin use: with manager long term care use Qualified Code(s): E11.65 - Type 2 diabetes mellitus with hyperglycemia; Z79.4 - custodial (current) use of insulin; Z79.4 - terminologist (current) use of insulin; Z79.4 - custodial ( current) use of insulin; Z79.4 - terminologist (current) use of insulin Code(s): E11.9 - Type 2 diabetes mellitus without complications Classification: Present on IRF Admission, IRF Tx That Should Address Diagnosis, Diagnosis Requiring Medical Follow Up (3) UTI (urinary tract infection), bacterial Status: Acute Code(s): N39.0 - Urinary tract infection, site not specified; A49.9 - Bacterial infection, unspecified Classification: Present on IRF Admission, IRF Tx That Should Address Diagnosis, Diagnosis Requiring Medical Follow Up (4) Benign essential hypertension Status: Chronic Code(s): I10 - Essential (primary) hypertension Classification: Present on IRF Admission, Diagnosis Requiring Medical Follow Up (5) Paroxysmal atrial fibrillation Status: Chronic Code(s): I48.0 - Paroxysmal atrial fibrillation Classification: Present on IRF Admission, IRF Tx That Should Address Diagnosis, Diagnosis Requiring Medical Follow Up (6) Thrombocytopenia Status: Acute Code(s): D69.6 - Thrombocytopenia, unspecified Classification: Present on IRF Admission, IRF Tx That Should Address Diagnosis, Diagnosis Requiring Medical Follow Up - Prior Functional Status 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 at home or school - Current Functional Status Current Level of Function: Her current level of function is as follows: She is modified independent level for eating but requires moderate assistance for grooming, total assistance for bathing and lower body dressing as well as toileting and bed/chair/wheelchair transfers. She is supervision level for upper body dressing and total assistance for toilet transfers. She is unable to ambulate at the present time as she is nonweightbearing on the right leg and has difficulty remembering to maintain that nonweightbearing status. Failed Alternative Therapy: Arrived from Acute Care Patient Requirements: The patient requires oversight by rehabilitation physician to manage their rehabilitation treatment plan and multidisciplinary approach to care that can only be provided in an IRF and requires a multidisciplinary approach to care, provided by professional PTs, OTs, STs, dieticians, RTs, rehabilitation nurses and is not available in lesser levels of care. Limitations Req: Mobility Impairment, ADL Impairment, Limited Mobility Physical Therapy Minutes: 90 Occupational Therapy Minutes: 90 Therapy: The patient is to receive therapy at least 5 days a week. - Complications/Comorbidities Impact on Functional Outcomes: Her pain will likely impact her functional outcome. In addition her cognition deficit may impact her functional outcome. Barriers to Discharge: Weakness, Endurance, Pain Control - Plan to Avoid Complications Plan to Avoid Complications: The patient cannot receive this care in a lesser intensive setting such as Care Home or Outpatient Therapy due to the patient requiring the following : She requires a multidisciplinary approach in view of her multiple medical problems impacting her functional outcome. She requires medical supervision and 24 hour rehabilitation nursing monitoring of her blood sugars, blood pressure and monitoring for evidence of bleeding in view of her thrombocytopenia and use of warfarin. .
[2017-10-07 17:17] VITALS: BMI 27.1
[2017-10-07] MEDS: CARVEDILOL 12.5 MG TABLET PO SCH (17:49)
[2017-10-07] MEDS ORDERED: FALL RISK - PHARMACY CONSULT XX ONE (18:15)
[2017-10-07] MEDS: BUMETANIDE 1 MG TABLET PO SCH (20:07)
[2017-10-07] MEDS: MELATONIN 5 MG TABLET PO SCH (20:07)
[2017-10-07] MEDS: DOCUSATE SODIUM 100 MG CAPSULE PO SCH (20:08)
[2017-10-07] MEDS: SIMVASTATIN 10 MG TABLET PO SCH (20:08)
[2017-10-07] MEDS: ACETAMINOPHEN 500 MG TABLET PO SCH (20:09)
[2017-10-07] MEDS: INSULIN ASPART 100unit/ml INJECTION SQ PRN (20:28)
[2017-10-07] MEDS: HYDROCODONE/APAP 5mg/325mg TABLET PO PRN (22:21)
[2017-10-08] MEDS: HYDROCODONE/APAP 5mg/325mg TABLET PO PRN ×2 (02:59→07:24)
[2017-10-08] MEDS: LEVOTHYROXINE 100 MCG TABLET PO SCH (06:09)
[2017-10-08] MEDS: INSULIN ASPART 100unit/ml INJECTION SQ PRN ×4 (06:31→20:32)
[2017-10-08] MEDS: INSULIN GLARGINE 100unit/ml INJECTION SQ SCH (08:49)
[2017-10-08] MEDS: ALLOPURINOL 100 MG TABLET PO SCH (08:49)
[2017-10-08] MEDS: CARVEDILOL 12.5 MG TABLET PO SCH ×2 (08:49→18:15)
[2017-10-08] MEDS: DOCUSATE SODIUM 100 MG CAPSULE PO SCH ×2 (08:49→20:33)
[2017-10-08] MEDS: BUMETANIDE 1 MG TABLET PO SCH ×2 (08:49→20:34)
[2017-10-08] MEDS: MULTI-VITAMIN PLAIN TABLET PO SCH (08:49)
--- NOTE | 2017-10-08 09:41 | Orthopedic Consult Note ---
Orthopedic Consultation HPI - Consultation Info Consult Date: 10/08/17 Attending Physician: Fadi Álvarez MD Consult Reason: fracture - History of Present Illness Fell at home. Was not having pain in the hip prior to fall. Seen in ER and admitted for observation and pain control. Complains of hip pain only. Review of Systems - Constitutional Constitutional: Absent: chills, fever(s), night sweats - Cardiovascular Cardiovascular: Absent: chest pain, palpitations - Respiratory Respiratory: Absent: cough, dyspnea - Gastrointestinal Gastrointestinal: Absent: abdominal pain, nausea, vomiting - Genitourinary Genitourinary Female: Absent: dysuria - Musculoskeletal Musculoskeletal: Present: as per HPI - Integumentary/Breasts Integumentary: Absent: lesions, rash - Neurological Neurological: Absent: numbness, tingling PFSH Patient Stated Medical History Cataracts Yes Cardiac Arrhythmia Yes: afib Hypertension Yes Other Cardiology Yes: mitral insufficiency Sleep Apnea Yes Diabetes Mellitus Type 2 Yes Constipation Yes Hx Incontinence Yes Hx Renal Disease Yes Osteoarthritis Yes Other Musculoskeletal Yes: gout Cellulitis Yes: lower legs Clinic Medical History (Last Reviewed 09/16/17 @ 16:42 by Shantell Garnica Ml) Hip fracture, right (Acute Medical) Renal insufficiency (Acute Medical) I suspect this is due to diuretics in the presence of Mitral Regurgitation, and lower extremity venous insufficiency. Mitral regurgitation (Acute Medical) Venous insufficiency of both lower extremities (Chronic Medical) Hypergammaglobulinemia, unspecified (Chronic Medical) Unknown etiology UTI (urinary tract infection), bacterial (Acute Medical) Thrombocytopenia (Acute Medical) Chronic anxiety (Chronic Medical) Sleep apnea (Chronic Medical) Hypothyroid (Chronic Medical) Hypercholesterolemia (Chronic Medical) Type 2 diabetes mellitus (Chronic Medical) Benign essential hypertension (Chronic Medical) Paroxysmal atrial fibrillation (Chronic Medical) Anticoagulated on warfarin (Chronic Medical) Gout (Chronic Medical) Meniere's disease (Chronic Medical) Metabolic syndrome (Chronic Medical) Sleep apnea (Chronic Medical) Chronic kidney disease, stage 3 (Inactive Medical) Congestive heart failure (Inactive Medical) Surgical History: Negative stress test 2012. Echo 2014 EF 65%, DCCV. Bilateral Blepharoplasty. Bilateral THR. PPM. Mastectomy 1972. Hysterectomy 1967. Cholecystectomy. Left knee. Right knee meniscous repair Family History: Family History (Last Reviewed 10/06/17 @ 12:24 by Berenice Marie APRN) Sister , Age 93 Anticoagulated on warfarin Paroxysmal atrial fibrillation Mother , Age 90 Heart disease Hip fracture Father , age 65 Myocardial infarction Brother , Age 72 Myocardial infarction - Social History Current residence: [place] Medications Home Medications Medication Instructions Recorded Confirmed Type Allopurinol 100 mg PO DAILY #0 09/09/11 10/06/17 History Insulin Glargine,Hum.rec.anlog 52 unit SQ DAILY #0 vial 08/11/14 10/07/17 History [Lantus] Acetaminophen [Acetaminophen Extra 500 mg PO TID 09/20/17 10/06/17 History Strength] Bumetanide Tab [Bumex Tab] 1 mg PO BID 09/20/17 10/06/17 History Carvedilol [Coreg] 12.5 mg PO BIDWM 09/20/17 10/06/17 History Cholecalciferol (Vitamin D3) 2,000 unit PO DAILY 09/20/17 10/06/17 History [Vitamin D3] Digoxin 125 mcg PO 3XW 09/20/17 10/06/17 History Levothyroxine Tab [Synthroid] 100 mcg PO ACB 09/20/17 10/06/17 History Mag-Al + Sim Oral Liq [Maalox Plus] 30 ml PO Q4HR PRN 09/20/17 10/06/17 History Melatonin/Pyridoxine HCl (B6) 6 mg PO HS 09/20/17 10/06/17 History [Melatonin 3 mg Tablet] Multi-Vitamin Plain [Theragran] 1 tab PO DAILY 09/20/17 10/06/17 History Nystatin Powder [Mycostatin] 1 applicatio TP PRN PRN 09/20/17 10/06/17 History Simvastatin [Zocor] 10 mg PO HS 09/20/17 10/06/17 History warfarin 4 mg tablet See Label Instructions PO .COMPLEX 09/24/17 10/06/17 History Spironolactone [Aldactone] 25 mg PO 3XW 10/06/17 10/06/17 History Allergies Allergy/AdvReac Type Severity Reaction Status Date / Time losartan Allergy Verified 10/07/17 18:30 gabapentin AdvReac Intermediate dizziness, Verified 10/07/17 18:30 swelling in feet influenza virus vaccine, AdvReac Intermediate Flu-like Verified 10/07/17 18:30 specific Symptoms carvedilol AdvReac Unknown Nausea and Verified 10/07/17 18:30 Vomiting ciprofloxacin AdvReac Unknown Nausea and Verified 10/07/17 18:30 Vomiting, Weight loss diltiazem AdvReac Unknown Nausea and Verified 10/07/17 18:30 Vomiting indomethacin AdvReac Unknown Nausea and Verified 10/07/17 18:30 Vomiting oxycodone AdvReac Unknown Nausea and Verified 10/07/17 18:30 Vomiting sitagliptin [From Januvia] AdvReac Unknown Nausea and Verified 10/07/17 18:30 Vomiting Sulfa (Sulfonamide AdvReac Unknown Nausea and Verified 10/07/17 18:30 Antibiotics) Vomiting benazepril AdvReac Nausea and Verified 10/07/17 18:30 vomiting metoprolol [From Toprol XL] AdvReac Nausea and Verified 10/07/17 18:30 vomiting Orthopedic Exam Vital signs: Temperature 97.7 F 10/08/17 07:43 Pulse Rate 71 10/08/17 07:43 Respiratory Rate 20 10/08/17 07:43 Blood Pressure 145/77 H 10/08/17 07:43 Pulse Oximetry 97 10/08/17 07:43 - Constitutional General Appearance: Present: no acute distress, well developed, well nourished - Cardiovascular Exam Present: pedal pulses intact - Extremities Exam Present: edema (trace edema), non tender, pulses intact, normal capillary refill. Absent: cyanosis, clubbing - Integumentary Exam Present: pink, warm, dry - Neurological Exam Present: intact to light touch, no deficits - Psychiatric Exam Present: alert, normal affect - Labs Result Diagrams: 10/08/17 04:21 10/08/17 04:21 Abnormal lab results 10/08/17 10/08/17 Range/Units 04:21 04:21 RBC 3.71 L (4.00-5.20) M/MM3 Hgb 11.5 L (12-16) GM/DL RDW Std Deviation 53.0 H (36.9-50.2) FL Plt Count 74 L (130-400) T/MM3 Yancey % (Auto) 14.9 H (0-9.0) % Yancey # (Auto) 0.9 H (0-0.8) T/MM3 Sodium 133 L (134-144) MEQ/L Chloride 92 L (98-107) MEQ/L Carbon Dioxide 34 H (22-30) MEQ/L BUN 49.0 H (7-17) MG/DL Creatinine 1.7 H D (0.7-1.2) MG/DL BUN/Creatinine Ratio 29 H (6-26) RATIO Glucose 300 H (65-110) MG/DL H & H 10/08/17 Range/Units 04:21 Hgb 11.5 L (12-16) GM/DL Hct 36.8 (36-46) % - Diagnostic results Hip x-ray: image reviewed Hip CT: report reviewed, image reviewed Impression and Recommendation (1) Periprosthetic fracture around internal prosthetic right hip joint Current visit: Yes Qualifiers: Encounter type: initial encounter Qualified Code(s): M97.01XA - Periprosthetic fracture around internal prosthetic right hip joint, initial encounter; T84.040A - Periprosthetic fracture around internal prosthetic right hip joint, initial encounter Status: Acute I discussed the injury with Mrs. Valencia. I do believe her fracture is likely stable. We did discuss stabilizing it further with cerclage wires. I recommended we see how she progresses with physical therapy. If she has any increase in pain or difficulty transferring and I think we should discuss again internal fixation with cerclage wires to prevent any progression of the fracture. If she progresses well with physical therapy and continue to observe her and treat this nonsurgically. Hospital Course Summary Disclaimer: The visit summary below is not to be considered part of the above Progress Note.
[2017-10-08] MEDS ORDERED: WARFARIN - PHARMACY CONSULT MC ONE (10:29)
--- NOTE | 2017-10-08 10:34 | IRU Progress Note ---
- Subjective/Serverity of Illness Date: 10/08/17 Ms. Chaudhary was evaluated in her room on the inpatient rehabilitation unit. She had just been working with therapy. She is having significant pain in the right hip/thigh area with any movement. She is working on transfers. Therapy does not believe she will be loaded tolerate flatfoot ambulation. Her hearing is quite poor. I discussed with her the fact that Dr. Rdz is willing to stabilize the fracture at some point. She is not opposed to that. She is having quite a bit of pain with any movement. She states that she was able to sleep okay as long she got her pain medication. She otherwise denies any chest pain or shortness of breath. She denies any bowel problems at present but does tend toward constipation. Update on medical problems we are actively monitoring and managin. UTI with E. Coli. She was on Rocephin while on acute. I discussed with the hospitalist service and they will check to see if she still needs to be on that or not. Denies any dysuria. She is afebrile. 2. Thrombocytopenia: Repeat platelet count remains low at 74,000. She does not display any evidence of active bleeding at present. We will continue to monitor. 3. Episodic confusion: She does have extremely poor hearing which could contribute to her confusion. We will monitor her mental status and cognition. 4. Atrial fibrillation on warfarin with therapeutic INR: Remains in atrial fibrillation. We will ask pharmacy to dose and monitor warfarin. 5. Diabetes mellitus: Blood sugars are running high at around 300. She is on Lantus as well as oral agents. She is also on a sliding scale for mealtime insulin. Hospitalist service to monitor and manage. Exam Vital Signs: Temperature 97.7 F 10/08/17 07:43 Pulse Rate 71 10/08/17 07:43 Respiratory Rate 20 10/08/17 07:43 Blood Pressure 145/77 H 10/08/17 07:43 Pulse Oximetry 97 10/08/17 07:43 Height/Weight/BMI: Height 1.7 m Weight 78.5 kg Body Mass Index 27.1 - Constitutional Present: moderate distress - Routine HEENT Exam Eye: Present: EOMI ENT: Present: mucous membranes moist - Routine Neck Exam Present: supple, full ROM - Routine Chest/Breast/Axilla Exam Chest wall: Absent: tenderness - Routine Respiratory Exam Present: CTA bilaterally - Routine Cardiovascular Exam Present: S1, S2, no murmur, irregular rhythm. Absent: S3, S4 - Routine Abdominal Exam Present: non distended, non tender. Absent: organomegaly, mass - Routine Extremities Exam Present: no edema - Routine Skin Exam Present: intact - Routine Neurological Exam Present: oriented X3, CN II-XII intact Results IRU - Labs Labs: Reviewed patient's lab. Her platelet count remains low. Creatinine is back up a bit at 1.7. Remains in chronic kidney disease stage IV. IRU A/P (1) Hip fracture, right Qualifiers: Encounter type: subsequent encounter Fracture type: closed Fracture healing: with routine healing Qualified Code(s): S72.001D - Fracture of unspecified part of neck of right femur, subsequent encounter for closed fracture with routine healing Current visit: No Status: Acute She is cooperative with therapy. Unfortunately she has significant pain with any movement. They're working on sliding board transfers. Therapy does not feel as though she is a candidate for flatfoot ambulation. I discussed with the patient is wearing the possibility of surgical stabilization. As noted above, she is not completely opposed to this. We will see how she does over the next couple of days with therapy and then make a decision. (2) Type 2 diabetes mellitus Qualifiers: Diabetes mellitus complication status: with hyperglycemia Diabetes mellitus terminal make up operator insulin use: with care home use Qualified Code(s): E11.65 - Type 2 diabetes mellitus with hyperglycemia; Z79.4 - intermission coordinator (current) use of insulin; Z79.4 - intermission coordinator (current) use of insulin; Z79.4 - [facility] ( current) use of insulin; Z79.4 - [facility] (current) use of insulin Current visit: No Status: Chronic Blood sugars are running a bit high at about 300 or so. She is on sliding-scale insulin (immediate acting) as well as long-acting Lantus 52 units. She is on oral agents. Hospitalist service to manage. (3) UTI (urinary tract infection), bacterial Current visit: Yes Status: Acute Please see above discussion. She is afebrile. She was on Rocephin while on acute but this was not continued upon transfer. I discussed with the hospitalist service and they will decide on whether to continue treatment or not. (4) Benign essential hypertension Current visit: No Status: Chronic (5) Paroxysmal atrial fibrillation Current visit: No Status: Chronic (6) Thrombocytopenia Current visit: Yes Status: Acute Platelets continue to be low for uncertain reasons. This is possibly because of consumption although we do not have a baseline prior to the fracture to see what she normally runs. In any event, she does not have evidence of bleeding and we will continue to monitor this. DVT Prophylaxis: SCD's Resuscitation Status: Do Not Resuscitate - Course Hospital Course: Fadi Álvarez MD: 10/08/17 10:38 She is just getting started with therapy. Significant pain with any movement. Working on sliding board transfers. She is hard of hearing but so far no definite evidence of confusion. - Interventions to Obtain Goals PT Treatment Plan: Balance/Proprioception, Functional Activities, Gait Training , Patient/Family Education OT Treatment Plan: ADL (Basic Care), Balance Training, Pt./Family Education, Ther. Exercise for ADL Goals Progress/Modifications: Time spent with patient and on floor reviewing data and documentin min Barriers to dismissal: Pain, hearing, cognition Medical decision-making: I reviewed her overall status. She continues to have substantial pain with any movement of the right leg. I reviewed the CT scan as well. I did discuss with Dr. Rdz yesterday and he is willing to stabilize the fracture with wires if needed. I discussed this with the patient this morning. She is not completely opposed to that. We will see how she does over the next couple of days with therapy but if she is not able to get on top of the pain, we will need to consider surgery. I will keep Dr. Rdz informed. Secondly, her blood sugars are running a bit high. Hospitalist service to manage in this regard. She is on oral agents and insulin. In addition, she has atrial fibrillation. Remains in atrial fibrillation at present and we will ask pharmacy to dose and monitor the warfarin. Order was placed today.
[2017-10-08] MEDS: ACETAMINOPHEN 500 MG TABLET PO SCH ×3 (10:35→20:33)
--- NOTE | 2017-10-08 13:19 | Consult Note ---
Consult Information - Data of Consult Consult date: 10/08/17 Requesting Physician: Fadi Álvarez MD - Consult Narrative Reason for consult: Medical management History of present illness: This is an 87-year-old female who was previously been on our service. She fell at her home at [facility], landing on her right hip. She was diagnosed with intertrochanteric fracture around an existing prosthesis. She has significant pain and is unable to manage this at home. Therefore requires hospitalization. Initial consult with orthopedics recommended patient to inpatient therapy and that if she could not tolerate this surgical repair could be considered. However surgical repair will be fairly involved. she does have a history of peripheral edema and has had some recent confusion. [facility] Patient Stated Medical History Cataracts Yes Cardiac Arrhythmia Yes: afib Hypertension Yes Other Cardiology Yes: mitral insufficiency Sleep Apnea Yes Diabetes Mellitus Type 2 Yes Constipation Yes Hx Incontinence Yes Hx Renal Disease Yes Osteoarthritis Yes Other Musculoskeletal Yes: gout Cellulitis Yes: lower legs Clinic Medical History (Last Reviewed 09/16/17 @ 16:42 by PRITESH Johnson) Hip fracture, right (Acute Medical) Renal insufficiency (Acute Medical) I suspect this is due to diuretics in the presence of Mitral Regurgitation, and lower extremity venous insufficiency. Mitral regurgitation (Acute Medical) Venous insufficiency of both lower extremities (Chronic Medical) Hypergammaglobulinemia, unspecified (Chronic Medical) Unknown etiology UTI (urinary tract infection), bacterial (Acute Medical) Thrombocytopenia (Acute Medical) Periprosthetic fracture around internal prosthetic right hip joint (Acute Medical) Chronic anxiety (Chronic Medical) Sleep apnea (Chronic Medical) Hypothyroid (Chronic Medical) Hypercholesterolemia (Chronic Medical) Type 2 diabetes mellitus (Chronic Medical) Benign essential hypertension (Chronic Medical) Paroxysmal atrial fibrillation (Chronic Medical) Anticoagulated on warfarin (Chronic Medical) Gout (Chronic Medical) Meniere's disease (Chronic Medical) Metabolic syndrome (Chronic Medical) Sleep apnea (Chronic Medical) Chronic kidney disease, stage 3 (Inactive Medical) Congestive heart failure (Inactive Medical) Surgical History: Negative stress test 2012. Echo 2013 EF 65%, DCCV. Bilateral Blepharoplasty. Bilateral THR. PPM. Mastectomy 1972. Hysterectomy 1967. Cholecystectomy. Left knee. Right knee meniscous repair Family History: Family History (Last Reviewed 10/06/17 @ 12:24 by Berenice Marie APRN) Sister , Age 93 Anticoagulated on warfarin Paroxysmal atrial fibrillation Mother , Age 90 Heart disease Hip fracture Father , age 65 Myocardial infarction Brother , Age 72 Myocardial infarction - Social History Smoking status: Never smoker Substance use type: does not use Current residence: Shelter Review of Systems All systems PM: 10-point ROS was reviewed, no additional remarkable complaints except Medications Home Medications Medication Instructions Recorded Confirmed Type Allopurinol 100 mg PO DAILY #0 09/09/11 10/06/17 History Insulin Glargine,Hum.rec.anlog 52 unit SQ DAILY #0 vial 08/11/14 10/07/17 History [Lantus] Acetaminophen [Acetaminophen Extra 500 mg PO TID 09/20/17 10/06/17 History Strength] Bumetanide Tab [Bumex Tab] 1 mg PO BID 09/20/17 10/06/17 History Carvedilol [Coreg] 12.5 mg PO BIDWM 09/20/17 10/06/17 History Cholecalciferol (Vitamin D3) 2,000 unit PO DAILY 09/20/17 10/06/17 History [Vitamin D3] Digoxin 125 mcg PO 3XW 09/20/17 10/06/17 History Levothyroxine Tab [Synthroid] 100 mcg PO ACB 09/20/17 10/06/17 History Mag-Al + Sim Oral Liq [Maalox Plus] 30 ml PO Q4HR PRN 09/20/17 10/06/17 History Melatonin/Pyridoxine HCl (B6) 6 mg PO HS 09/20/17 10/06/17 History [Melatonin 3 mg Tablet] Multi-Vitamin Plain [Theragran] 1 tab PO DAILY 09/20/17 10/06/17 History Nystatin Powder [Mycostatin] 1 applicatio TP PRN PRN 09/20/17 10/06/17 History Simvastatin [Zocor] 10 mg PO HS 09/20/17 10/06/17 History warfarin 4 mg tablet See Label Instructions PO .COMPLEX 09/24/17 10/06/17 History Spironolactone [Aldactone] 25 mg PO 3XW 10/06/17 10/06/17 History Allergies Allergy/AdvReac Type Severity Reaction Status Date / Time losartan Allergy Verified 10/07/17 18:30 gabapentin AdvReac Intermediate dizziness, Verified 10/07/17 18:30 swelling in feet influenza virus vaccine, AdvReac Intermediate Flu-like Verified 10/07/17 18:30 specific Symptoms carvedilol AdvReac Unknown Nausea and Verified 10/07/17 18:30 Vomiting ciprofloxacin AdvReac Unknown Nausea and Verified 10/07/17 18:30 Vomiting, Weight loss diltiazem AdvReac Unknown Nausea and Verified 10/07/17 18:30 Vomiting indomethacin AdvReac Unknown Nausea and Verified 10/07/17 18:30 Vomiting oxycodone AdvReac Unknown Nausea and Verified 10/07/17 18:30 Vomiting sitagliptin [From Januvia] AdvReac Unknown Nausea and Verified 10/07/17 18:30 Vomiting Sulfa (Sulfonamide AdvReac Unknown Nausea and Verified 10/07/17 18:30 Antibiotics) Vomiting benazepril AdvReac Nausea and Verified 10/07/17 18:30 vomiting metoprolol [From Toprol XL] AdvReac Nausea and Verified 10/07/17 18:30 vomiting Exam Vital Signs: Temperature 97.7 F 10/08/17 07:43 Pulse Rate 71 10/08/17 07:43 Respiratory Rate 20 10/08/17 07:43 Blood Pressure 145/77 H 10/08/17 07:43 Pulse Oximetry 97 10/08/17 07:43 Telemetry Rhythm: Sinus Rhythm Height/Weight/BMI: Height 1.7 m Weight 78.5 kg Body Mass Index 27.1 - Constitutional Present: no acute distress - Routine Neck Exam Present: supple, full ROM - Routine Chest/Breast/Axilla Exam Chest wall: Absent: tenderness - Routine Respiratory Exam Present: CTA bilaterally. Absent: wheezes - Routine Cardiovascular Exam Present: RRR. Absent: murmur - Routine Abdominal Exam Present: soft, normoactive bowel sounds, non distended. Absent: tenderness - Routine Extremities Exam Present: edema (1+ bilateral). Absent: cyanosis, clubbing - Routine Neurological Exam Present: alert, oriented X3, CN II-XII intact Results - Labs CBC & Chem 7: 10/08/17 04:21 10/08/17 04:21 Assessment and Plan (1) Hip fracture, right Current visit: No Status: Acute (2) Renal insufficiency Problem details: I suspect this is due to diuretics in the presence of Mitral Regurgitation, and lower extremity venous insufficiency. Current visit: No Status: Acute (3) Venous insufficiency of both lower extremities Current visit: No Status: Chronic (4) Type 2 diabetes mellitus Current visit: No Status: Chronic (5) Benign essential hypertension Current visit: No Status: Chronic Assessment and Plan: Impression 1. Hip Fracture right 2 mitral regurgitation 3. Venous insufficiency lower extremities 4. renal insufficiency 5. Hypertension 6 sleep apnea 7 diabetes mellitus type 2 8. UTI Plan Right intertrochanteric femur fracture, requires physical therapy. If patient is able to tolerate therapy, she may avoid surgery. Orthopedics is to follow. Patient on warfarin, pharmacy consult. Vantin oral, 200 mg twice a day as Citrobacter and Klebsiella were noted in urine. Antibiotics to be continued through 10/13/2017. Blood pressure monitoring, continue current medications. Including Coreg and digitoxin. Diuretic continued, Aldactone. Blood sugar monitoring, continue Lantus 52 units daily. We will continue to follow him medically managed during her stay on the inpatient rehabilitation unit. At time of discharge medical care or return to PCP, Dr. Roa. Alfonso Garner MD Hospital Course Summary Disclaimer: The visit summary below is not to be considered part of the above Progress Note. Hospital Course: 10/08/17 13:42 Impression 1. Hip Fracture right 2 mitral regurgitation 3. Venous insufficiency lower extremities 4. renal insufficiency 5. Hypertension 6 sleep apnea 7 diabetes mellitus type 2 8. UTI Plan Right intertrochanteric femur fracture, requires physical therapy. If patient is able to tolerate therapy, she may avoid surgery. Orthopedics is to follow. Patient on warfarin, pharmacy consult. Vantin oral, 200 mg twice a day as Citrobacter and Klebsiella were noted in urine. Antibiotics to be continued through 10/13/2017. Blood pressure monitoring, continue current medications. Including Coreg and digitoxin. Diuretic continued, Aldactone. Blood sugar monitoring, continue Lantus 52 units daily. We will continue to follow him medically managed during her stay on the inpatient rehabilitation unit. At time of discharge medical care or return to PCP, Dr. Roa. Alfonso Garner MD
[2017-10-08] MEDS ORDERED: WARFARIN 4 MG TABLET PO ONE (13:21)
--- NOTE | 2017-10-08 14:40 | Pharmacy Consult ---
Pharmacy Consult-Warfarin - Consult Information 87 y.o. female with history of a. fib and chronic anticoagulation with Warfarin. Home warfarin dose = 4 mg po on Sat, Sat, Sat, Sat and 2 mg on , and Sat. goal INR range = 2.0 to 3.0. Date INR Dose 10/06 2.57 3 mg 10/07 2.49 4 mg 10/08 ---- 4 mg The INR is within the goal range of 2.0-3.0 on Saturday. Patient was transfered without a protocol ordered nor lab ordered. I ordered Warfarin 4 mg by mouth today anyway. The pharmacy will continue to monitor the INR's and will adjust the Warfarin accordingly. Thank you for the Warfarin Dosing Protocol, Neftali Tobin, Pharmacist.
[2017-10-08] MEDS: CEFPODOXIME 200mg TABLET PO SCH (18:15)
[2017-10-08] MEDS: MELATONIN 5 MG TABLET PO SCH (20:33)
[2017-10-08] MEDS: SIMVASTATIN 10 MG TABLET PO SCH (20:33)
[2017-10-09] MEDS: LEVOTHYROXINE 100 MCG TABLET PO SCH (06:39)
[2017-10-09] MEDS: INSULIN ASPART 100unit/ml INJECTION SQ PRN ×4 (06:42→21:55)
--- NOTE | 2017-10-09 08:06 | Pharmacy Consult ---
Pharmacy Consult-Warfarin - Laboratory Information 10/09/17 05:02 INR 2.12 H - Consult Information Warfarin 4mg po ordered today at noon. Will continue to monitor. Thank you.
[2017-10-09] MEDS: INSULIN GLARGINE 100unit/ml INJECTION SQ SCH (08:51)
[2017-10-09] MEDS: SPIRONOLACTONE 25 MG TABLET PO SCH (08:51)
[2017-10-09] MEDS: CARVEDILOL 12.5 MG TABLET PO SCH ×2 (08:51→16:33)
[2017-10-09] MEDS: MULTI-VITAMIN PLAIN TABLET PO SCH (08:51)
[2017-10-09] MEDS: BUMETANIDE 1 MG TABLET PO SCH ×2 (08:52→20:44)
[2017-10-09] MEDS: ALLOPURINOL 100 MG TABLET PO SCH (08:52)
[2017-10-09] MEDS: DOCUSATE SODIUM 100 MG CAPSULE PO SCH ×2 (08:52→20:44)
[2017-10-09] MEDS: ACETAMINOPHEN 500 MG TABLET PO SCH ×3 (08:52→20:44)
[2017-10-09] MEDS: CEFPODOXIME 200mg TABLET PO SCH ×2 (08:52→16:32)
[2017-10-09] MEDS: DIGOXIN 125 MCG TABLET PO SCH (08:52)
--- NOTE | 2017-10-09 11:53 | IRU Progress Note ---
- Subjective/Serverity of Illness Date: 10/09/17 Ms. Chaudhary was evaluated in her room on IRU. Continues to complain of substantial pain with transfers. We started fentanyl patch yesterday as well as as needed hydrocodone on top of that. She denies any chest pain or shortness of breath. She complains of not having a bowel movement and would like some Metamucil. She does have a cough with some sputum. She's had that for about a week. Her lungs remain clear and she is afebrile. Brief therapy update: Continues to have a lot of pain which is hindering her progress. If she continues to have this pain we'll need to consider contacting Dr. Rdz for consideration of surgical repair to allow her to progress more rapidly. Update on medical problems we are actively monitoring and managin. UTI with E. Coli. Remains afebrile and without dysuria. She is now on Vantin. 2. Thrombocytopenia: No evidence of active bleeding. We will continue to monitor her platelets. 3. Episodic confusion: Seems to have occasional episodes of confusion but this may be related to her pain or pain medication. 4. Atrial fibrillation on warfarin with therapeutic INR: INR is therapeutic. 5. Diabetes mellitus: Blood sugars continued to be elevated at over 300. She is on long-acting insulin plus mealtime insulin plus oral agents. Exam Vital Signs: Temperature 98.3 F 10/09/17 08:00 Pulse Rate 90 10/09/17 08:52 Respiratory Rate 18 10/09/17 08:00 Blood Pressure 140/85 H 10/09/17 08:00 Pulse Oximetry 90 10/09/17 08:00 Height/Weight/BMI: Height 1.7 m Weight 78.5 kg Body Mass Index 27.1 Comments: The patient is awake, alert and oriented. At rest she is comfortable. However with any movement she has significant pain in the right hip. Pupils are equal. The neck is supple. Chest: Clear to auscultation bilaterally. Cor: irregular rhythm with no gallop nor click. Does have systolic murmur. Abd: soft with normo-active bowel sounds. There are no masses, no tenderness and no guarding. Extremities: No edema is noted. Results IRU - Labs Labs: Reviewed labs etc. IRU A/P (1) Hip fracture, right Qualifiers: Encounter type: subsequent encounter Fracture type: closed Fracture healing: with routine healing Qualified Code(s): S72.001D - Fracture of unspecified part of neck of right femur, subsequent encounter for closed fracture with routine healing Current visit: No Status: Acute Pain continues to be a barrier to her progress. We will discuss with therapy to see how she is doing this morning. If not improving with the fentanyl patch will need to consider surgical repair for stabilization. (2) Type 2 diabetes mellitus Qualifiers: Diabetes mellitus complication status: with hyperglycemia Diabetes mellitus terminal operations supervisor insulin use: with longterm use Qualified Code(s): E11.65 - Type 2 diabetes mellitus with hyperglycemia; Z79.4 - [facility] (current) use of insulin; Z79.4 - termite control technician (current) use of insulin; Z79.4 - [facility] ( current) use of insulin; Z79.4 - [facility] (current) use of insulin Current visit: No Status: Chronic Blood sugars continue to be out of control at greater than 300. We'll discuss with hospitalist service. (3) UTI (urinary tract infection), bacterial Current visit: Yes Status: Acute Hospitalist service has placed her on Vantin. (4) Benign essential hypertension Current visit: No Status: Chronic (5) Paroxysmal atrial fibrillation Current visit: No Status: Chronic (6) Thrombocytopenia Current visit: Yes Status: Acute DVT Prophylaxis: SCD's Resuscitation Status: Do Not Resuscitate - Course Hospital Course: Fadi Álvarez MD: 10/08/17 10:38 She is just getting started with therapy. Significant pain with any movement. Working on sliding board transfers. She is hard of hearing but so far no definite evidence of confusion. 10/09/17 11:53 Working with therapy but having a lot of pain. Started on Vantin. Pain management continues to be a significant issue. Does have a cough for 1 week with some discolored sputum. However lungs are clear. - Interventions to Obtain Goals PT Treatment Plan: Balance/Proprioception, Functional Activities, Gait Training , Patient/Family Education OT Treatment Plan: ADL (Basic Care), Balance Training, Pt./Family Education, Ther. Exercise for ADL Goals Progress/Modifications: Time spent with patient and on floor reviewing data and documentin min Barriers to dismissal: pain, hearing, cognition Medical decision-making: Patient does have a cough with sputum for the past 1 week. However she is afebrile and her lungs remain clear without evidence of underlying pneumonia etc. Secondly, the patient continues to experience significant pain with any transfer. I will discuss with therapy whether we can anticipate this to improve or not. She is now on a fentanyl patch. If this is not manageable, we will need to ask Dr. Rdz for consideration of stabilization of the fracture so that she can progress. Thirdly, she complains of constipation. We will add on Metamucil today.
[2017-10-09] MEDS ORDERED: WARFARIN 4 MG TABLET PO SCH (12:00)
[2017-10-09] MEDS: PSYLLIUM PACKET PO SCH (12:29)
[2017-10-09] MEDS ORDERED: GLUCOSE ORAL GEL 40% 37.5gm PO PRN (12:41)
--- NOTE | 2017-10-09 13:24 | Progress Note ---
- Date 10/09/17 Subjective: Bing is seen today in follow up for her right hip fracture as well as uncontrolled diabetes and new hyponatremia. She is seen while sitting in the dining room, eating lunch. She states that she is feeling pretty good overall and denies any new complaints. She continues to have severe right hip pain with movement and therapies rating it at 10/10, but states that she has no pain at rest. She says her appetite is fair and she is trying to eat well to keep up her strength. She denies any fevers, chill, chest pain, shortness of breath , abdominal pain, nausea, vomiting or diarrhea. She has not had a bowel movement and is currently taking Metamucil for bowel motivation. She continues on Vantin BID for her current UTI secondary to klebsiella and citrobacter which is to be complete on 10/13. Labs on 10/08 at the time of admission to IRU revealed new hyponatremia with sodium at 133 and hyperglycemia. BGMs have consistently been elevated >250 despite daily lantus 53 units. A1c was elevated at 10.0. Renal function is at patient's baseline of 1.7 (baseline 1.8- 2.0). Hemoglobin stable at 11.5. Platelets continue to trend down slowly at 77. Objective Vital signs: Temperature 98.3 F 10/09/17 08:00 Pulse Rate 90 10/09/17 08:52 Respiratory Rate 18 10/09/17 08:00 Blood Pressure 140/85 H 10/09/17 08:00 Pulse Oximetry 90 10/09/17 08:00 Height/Weight/BMI: Height 5 ft 7 in Weight 173 lb 1.006 oz Body Mass Index 27.1 Comments: Patient sitting in dining room, eating lunch; no acute distress; answers all questions appropriately. - Constitutional Present: no acute distress, well nourished, well developed, cooperative - Routine HEENT Exam Head: Present: normocephalic, atraumatic Eye: Present: PERRL. Absent: conjunctival icterus ENT: Present: mucous membranes moist - Routine Respiratory Exam Present: decreased breath sounds, crackles (bibasilar). Absent: stridor, wheezes Comments: occasional dry cough on exam. - Routine Cardiovascular Exam Present: RRR, S1, S2 - Routine Abdominal Exam Present: soft, normoactive bowel sounds, non tender, distended (mild). Absent: rebound, guarding, firm - Routine Extremities Exam Present: edema (trace), pulses intact - Routine Back/Spine/Pelvis Exam Back/Spine: Present: full ROM. Absent: vertebral tenderness - Routine Musculoskeletal Exam Musculoskeletal: Present: moving extremities well, limited range of motion ( right hip secondary to pain) - Routine Skin Exam Present: dry, warm. Absent: jaundice Comments: afebrile. - Routine Neurological Exam Present: alert, oriented X3, moving all extremities, normal speech. Absent: facial asymmetry - Routine Lymphatic Exam Lymphatic: Absent: lymphedema - Routine Psychiatric Exam Present: normal affect, cooperative Results - Labs CBC & Chem 7: 10/08/17 04:21 10/08/17 04:21 Assessment and Plan (1) Hip fracture, right Current visit: No Status: Acute (2) Benign essential hypertension Current visit: No Status: Chronic (3) Type 2 diabetes mellitus Current visit: No Status: Chronic (4) Renal insufficiency Problem details: I suspect this is due to diuretics in the presence of Mitral Regurgitation, and lower extremity venous insufficiency. Current visit: No Status: Acute (5) Venous insufficiency of both lower extremities Current visit: No Status: Chronic Assessment and Plan: Impression Acute Medical History Hip Fracture right, acute - no surgery and conservative treatment per Dr. Rdz. UTI secondary to klebsiella and Citrobacter - Vantin BID 10/06/17 - 10/13/17. Hyponatremia, acute as of 10/08/17. Hyperglycemia secondary to uncontrolled diabetes type II - A1c 10.0%. Chronic Medical History Chronic kidney disease stage IV - baseline SCr 1.8-2.0. Mitral regurgitation. Venous insufficiency lower extremities. Hypertension. Chronic anticoagulation on Coumadin. Chronic a-fib. CHF with EF 65%. Sleep apnea. Diabetes mellitus type 2, uncontrolled. Constipation. Hypergammaglobulemia. Anxiety. Hypothyroid. Hyperlipidemia. Gout. Mnire's disease. Osteoarthritis. History of breast CA. Plan - 10/09/17 (Mirakian) Patient continues to have significant pain with movement secondary to right intertrochanteric femur fracture. Continue pain control and therapy as directed by Dr. Álvarez. Continue to provide safe and supportive environment. If patient is able to tolerate therapy, she may avoid surgery. Dr. Rdz following. Continue current treatment of Vantin 200mg BID for UTI secondary to Citrobacter and klebsiella. Treatment course 10/06/17-10/13/17. Continue to monitor closely for signs of persistent infection. Chronic a-fib, rate controlled. Continue warfarin therapy with pharmacy to manage. Current INR 2.12. Continue home medications including Coreg and digoxin. Blood pressure stable. Continue home medications and continue to monitor closely. Continue Bumex 1mg BID and spironolactone 25mg daily for diuresis. Monitor daily weight closely for signs of fluid overload. Monitor urinary output closely via Rouse - currently stable. Bibasilar crackles noted on exam. Will obtain CXR now. May need additional diuresis. Encourage incentive spirometry. Hyponatremia noted today with Na 133. Will obtain urine sodium and creatine. Initiate fluid restriction at 1800cc. Will recheck labs in AM to monitor electrolytes and renal function. Significant hyperglycemia noted with blood sugars averaging 300, always >250. Home medication including Lantus 53 units in AM. Will increase Lantus to 57 units in AM and add Novolog 2 units at breakfast, Novolog 3 units at Lunch and Novolog 5 units at dinner. Monitor blood sugars closely for hypoglycemia or persistent hyperglycemia. Will adjust insulin as indicated. A1c 10.0%. Will consult Dr. Salgado for additional treatment recommendations and expertise. Appreciate his time and expertise. Continue bowel motivation. We will continue to follow him medically managed during her stay on the inpatient rehabilitation unit. At time of discharge medical care or return to PCP, Dr. Roa. Alfonso Garner MD DVT Prophylaxis: SCD's Resuscitation Status: Do Not Resuscitate - Time spent with patient Time with patient PN: 35 minutes - Physician Narriative Physician: other (Dr. Garner) Hospital Course Summary Disclaimer: The visit summary below is not to be considered part of the above Progress Note. Hospital Course: 10/08/17 13:42 Impression 1. Hip Fracture right 2 mitral regurgitation 3. Venous insufficiency lower extremities 4. renal insufficiency 5. Hypertension 6 sleep apnea 7 diabetes mellitus type 2 8. UTI Plan Right intertrochanteric femur fracture, requires physical therapy. If patient is able to tolerate therapy, she may avoid surgery. Orthopedics is to follow. Patient on warfarin, pharmacy consult. Vantin oral, 200 mg twice a day as Citrobacter and Klebsiella were noted in urine. Antibiotics to be continued through 10/13/2017. Blood pressure monitoring, continue current medications. Including Coreg and digitoxin. Diuretic continued, Aldactone. Blood sugar monitoring, continue Lantus 52 units daily. We will continue to follow him medically managed during her stay on the inpatient rehabilitation unit. At time of discharge medical care or return to PCP, Dr. Roa. Alfonso Garner MD Plan - 10/09/17 (Mirakian) Patient continues to have significant pain with movement secondary to right intertrochanteric femur fracture. Continue pain control and therapy as directed by Dr. Álvarez. Continue to provide safe and supportive environment. If patient is able to tolerate therapy, she may avoid surgery. Dr. Rdz following. Continue current treatment of Vantin 200mg BID for UTI secondary to Citrobacter and klebsiella. Treatment course 10/06/17-10/13/17. Continue to monitor closely for signs of persistent infection. Chronic a-fib, rate controlled. Continue warfarin therapy with pharmacy to manage. Current INR 2.12. Continue home medications including Coreg and digoxin. Blood pressure stable. Continue home medications and continue to monitor closely. Continue Bumex 1mg BID and spironolactone 25mg daily for diuresis. Monitor daily weight closely for signs of fluid overload. Monitor urinary output closely via Rouse - currently stable. Bibasilar crackles noted on exam. Will obtain CXR now. May need additional diuresis. Encourage incentive spirometry. Hyponatremia noted today with Na 133. Will obtain urine sodium and creatine. Initiate fluid restriction at 1800cc. Will recheck labs in AM to monitor electrolytes and renal function. Significant hyperglycemia noted with blood sugars averaging 300, always >250. Home medication including Lantus 53 units in AM. Will increase Lantus to 57 units in AM and add Novolog 2 units at breakfast, Novolog 3 units at Lunch and Novolog 5 units at dinner. Monitor blood sugars closely for hypoglycemia or persistent hyperglycemia. Will adjust insulin as indicated. A1c 10.0%. Will consult Dr. Salgado for additional treatment recommendations and expertise. Appreciate his time and expertise. Continue bowel motivation. We will continue to follow him medically managed during her stay on the inpatient rehabilitation unit. At time of discharge medical care or return to PCP, Dr. Roa. Alfonso Garner MD
--- NOTE | 2017-10-09 13:36 | XRay Report ---
Indication: cough PROCEDURE: XR chest 2V: Encounter: Initial Comparison: None. Findings: There is mild cardiomegaly and probably vascular congestion without overt interstitial pulmonary edema. No pleural effusion. There is a moderate hiatal hernia. There are also fairly extensive mitral annulus calcifications. No lobar consolidation. The trachea is midline. There is a right subclavian dual-lead pacemaker in place with leads in good position. 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 There is moderate tortuosity of the descending thoracic aorta. Impression: Cardiomegaly and vascular congestion without overt CHF. Moderate hiatal hernia. .
--- NOTE | 2017-10-09 13:43 | IRU Plan of Care ---
[facility] Overall Plan of Care - Date Date: 10/09/17 - Patient Impairments (1) Hip fracture, right Qualifiers: Encounter type: subsequent encounter Fracture type: closed Fracture healing: with routine healing Qualified Code(s): S72.001D - Fracture of unspecified part of neck of right femur, subsequent encounter for closed fracture with routine healing Code(s): S72.001A - Fracture of unspecified part of neck of right femur, initial encounter for closed fracture Status: Acute Classification: Present on IRF Admission, IRF Tx That Should Address Diagnosis, Diagnosis Requiring Medical Follow Up (2) Renal insufficiency Code(s): N28.9 - Disorder of kidney and ureter, unspecified Status: Acute Classification: Present on IRF Admission, Diagnosis Requiring Medical Follow Up (3) Venous insufficiency of both lower extremities Code(s): I87.2 - Venous insufficiency (chronic) (peripheral) Status: Chronic Classification: Diagnosis Requiring Medical Follow Up (4) Type 2 diabetes mellitus Qualifiers: Diabetes mellitus complication status: with hyperglycemia Diabetes mellitus intermediate teacher insulin use: with residential use Qualified Code(s): E11.65 - Type 2 diabetes mellitus with hyperglycemia; Z79.4 - MCFP (current) use of insulin; Z79.4 - [facility]FP (current) use of insulin; Z79.4 - terminologist ( current) use of insulin; Z79.4 - terminologist (current) use of insulin Code(s): E11.9 - Type 2 diabetes mellitus without complications Status: Chronic Classification: Present on IRF Admission, IRF Tx That Should Address Diagnosis, Diagnosis Requiring Medical Follow Up (5) Benign essential hypertension Code(s): I10 - Essential (primary) hypertension Status: Chronic Classification: Present on IRF Admission, Diagnosis Requiring Medical Follow Up - Relevant Changes Relevant Changes: No Reviewed: I have reviewed the patient's information and concur with the finding and results of the pre-admission screen. Certification: I certify the patient for rehabilitation. - Medical Prognosis Medical Prognosis: Good Vital Signs: Last Vital Signs Temp 98.3 F 10/09/17 08:00 Pulse 90 10/09/17 08:52 Resp 18 10/09/17 08:00 BP 140/85 H 10/09/17 08:00 Pulse Ox 90 10/09/17 08:00 - Anticipated Interventions Anticipated Interventions: The patient requires inpatient IRF care for PT and OT for residuals remaining from right hip maureen-prosthetic fracture resulting in muscular weakness and strength deficits. An individualized overall plan of care has been developed after careful review of the patient's preadmission screening, post admission physician evaluation and assessments of all therapy disciplines and/or other pertinent clinicians involved in treating the patient. This indicates medical necessity and rehabilitation necessity have been established through a thorough review of all available medical information. We are continuing to work with patient. However she has substantial pain with any movement. Further disposition will be pending recommendation of orthopedics Dr. Rdz. ROM Deficit: Right Lower Extremity Strength Deficits: Right Lower Extremity - Current Functional Status Failed Alternative Therapy: Arrived from Acute Care Patient Requires: The patient requires oversight by rehabilitation physician to manage their rehabilitation treatment plan and multidisciplinary approach to care that can only be provided in an IRF and requires a multidisciplinary approach to care, provided by professional PTs, OTs, rehabilitation nurses, and may require STs, dieticians, and RTS. This is not available in lesser levels of care. Physical Therapy Minutes: 90 Occupational Therapy Minutes: 90 Therapy: The patient is to receive therapy at least 5 days a week. - Anticipated LOS/Outcomes Anticipated Functional Outcome: The patient displays substantial pain with any movement of the right lower extremity. It appears as though significant progress will not be likely at this time. We have added on pain medication but it is not adequate to control her discomfort. We have consulted orthopedics with the possibility of stabilization of the fracture prior to further rehabilitation. We will continue attempts at physical therapy and occupational therapy but ultimate disposition will be pending recommendation by orthopedicsDr. Rdz. Anticipated Length of Stay (days): 1 (anticipated length of stay is pending recommendation of orthopedics.) Anticipated DC Destination: [facility]Facility Home Safety Plan: The patient will be provided with the development of a Home Safety Plan for return to a home or home-like environment and and to ensure safety post discharge. - Plan to Avoid Complications Barriers to Attaining Goals: Endurance, Comprehension, Pain Control Plan to Avoid Complications: The patient cannot receive this care in a lesser intensive setting such as [facility] or Outpatient Therapy due to the patient requiring the following : Patient requires close monitoring of blood sugars in view of her hyperglycemia and diabetes. She is a fall risk. She requires 24 rehabilitation nursing to monitor and treat her pain as well as a multidisciplinary, coordinated therapeutic program with PT and OT .
[2017-10-09] MEDS ORDERED: INSULIN ASPART 100unit/ml INJECTION SQ SCH (17:00)
--- NOTE | 2017-10-09 18:19 | Consultation ---
DATE OF CONSULT 10/09/2017 REASON FOR CONSULTATION Uncontrolled diabetes. HISTORY OF PRESENT ILLNESS The patient is a resident at [facility] but fell on 10/06/2017 and suffered a periprosthetic fracture in her right hip in the right intertrochanteric area. It was felt that she should not undergo surgery at this time. She was initially admitted to the acute care hospital and then moved to the IRU on 10/07/2017. She has a history of poorly-controlled type 2 diabetes mellitus treated with oral agents and basal insulin. Her HgA1c was 10.0 in June. She reports that she has dry mouth and nocturia. She has had diabetes since 1997. She also has a history of hypothyroidism that has been present longer. She denies any diabetic retinopathy but says that she thinks she has proteinuria and knows that she has peripheral neuropathy. Symptomatically she does have some blurry vision at times. Her feet also get numb and tingle. Her weight has been fairly stable. She is currently treated with NovoLog 2 units q.a.m., 3 units q. lunch, 5 units q. p.m. and sliding scale as needed plus Lantus 57 units daily. She takes Synthroid 100 mcg q.a.m. for her hypothyroidism. ALLERGIES Losartan. Sitagliptin. Diltiazem. Gabapentin. Carvedilol. Metoprolol. Benazepril. Ciprofloxacin. Indomethacin. Oxycodone. Sulfa. Influenza virus vaccine PAST MEDICAL HISTORY Atrial fibrillation. Hypertension. Chronic anticoagulation. Right hip fracture. CKD stage IV. Venous insufficiency of both lower extremities. Hypergammaglobulinemia. Hypercholesterolemia. Type 2 diabetes mellitus. Hypotension. Essential hypertension. Gout. Meniere's disease. Congestive heart failure. Osteoarthritis. Sleep apnea. PAST SURGICAL HISTORY Bilateral blepharoplasty. Bilateral total hip replacement. Mastectomy. Hysterectomy. Cholecystectomy. Bilateral knee surgeries. FAMILY HISTORY Remarkable for atrial fibrillation, heart disease and DC in father and brother. SOCIAL HISTORY The patient does not smoke tobacco nor drink alcohol. REVIEW OF SYSTEMS No history of goiter or pressure in her neck. No dysphagia. No palpitations. Positive for constipation and nocturia. Weight has been stable. Otherwise negative except as mentioned in HPI. MEDICATIONS Reviewed again in EMR. PHYSICAL EXAM VITAL SIGNS: Afebrile with stable vital signs. BP 130/75. GENERAL: Well-developed, well-nourished, female, alert, cooperative and in no acute distress. HEENT: Normocephalic, atraumatic. EOM intact. Mucous membranes moist. NECK: Without thyromegaly or lymphadenopathy. LUNGS: Clear. HEART: Irregularly irregular rhythm with systolic murmur. ABDOMEN: Normal bowel sounds. Soft, nontender without masses, tenderness or organomegaly. EXTREMITIES: Without cyanosis. There is no edema. SKIN: Warm and dry. NEUROLOGIC: Diminished light touch sensation on the soles of the feet. PSYCHIATRIC: Normal affect. Normal thought processes, good insight, good judgment. LABORATORY Glucometer readings have all been in the 200s and 300s since the evening of 08/2017. In the past 24 hours they have been 347, 219, 331 and 305. ASSESSMENT 1. Uncontrolled type 2 diabetes mellitus. The patient is uncontrolled at all times of day and will need more basal insulin. However, her blood sugar is rising significantly after breakfast so the NovoLog will need adjustment as well. 2. Peripheral neuropathy. 3. Hypothyroidism. Thyroid indices should be checked. 4. Hypertension, controlled. 5. Hyperlipidemia. 6. Stage IV chronic kidney disease with current creatinine 1.7 and GFR estimated at 28. RECOMMENDATIONS Change insulin to NovoLog 3 units for breakfast and lunch, 5 units for supper and Lantus to 62 units daily. The NovoLog will need to continue to be titrated. TSH and free T4 should be checked. Thank you very much for asking me to help in caring for this pleasant patient. I will follow her along with you while she remains in the hospital. HOWIE
[2017-10-09] MEDS: SIMVASTATIN 10 MG TABLET PO SCH (20:44)
[2017-10-09] MEDS: MELATONIN 5 MG TABLET PO SCH (20:44)
[2017-10-10] MEDS: LEVOTHYROXINE 100 MCG TABLET PO SCH ×2 (03:24→05:52)
[2017-10-10] MEDS ORDERED: INSULIN ASPART 100unit/ml INJECTION SQ SCH ×3 (06:30→07:46)
[2017-10-10] MEDS: INSULIN ASPART 100unit/ml INJECTION SQ PRN ×4 (06:55→21:49)
--- NOTE | 2017-10-10 07:52 | Endocrinology Progress Note ---
Subjective Principal diagnosis: Type 2 Diabetes Mellitus, uncontrolled Interval history: Slept well until 3:30 AM when awakened by worsening hip pain. Glucose still katy overnight since the increased dose of Lantus will not be given until this morning. Exam Vital signs: Temperature 98.7 F 10/09/17 20:22 Pulse Rate 65 10/09/17 20:22 Respiratory Rate 20 10/09/17 20:22 Blood Pressure 111/61 10/09/17 20:22 Pulse Oximetry 92 10/09/17 20:22 - Constitutional mild distress (hip pain), well nourished, well developed - Routine HEENT Exam Head: Present: normocephalic, atraumatic Eye: Present: EOMI ENT: Present: mucous membranes moist - Routine Neck Exam Present: thyromegaly - Routine Respiratory Exam Absent: dyspnea - Routine Cardiovascular Exam Present: murmur, irregularly irregular - Routine Abdominal Exam Present: soft, normoactive bowel sounds - Routine Extremities Exam Absent: edema - Routine Skin Exam Present: dry, warm - Routine Neurological Exam Present: alert, oriented X3, moving all extremities - Routine Psychiatric Exam Present: normal affect, normal thought process, good insight, good judgment - Additional findings Additional findings: Laboratory Tests 10/10/17 06:44 Glucometer 212 8 PM BS was 189. Assessment and Plan (1) Type 2 diabetes mellitus with hyperglycemia Current visit: Yes Status: Chronic Needs better control without increasing risk of hypoglycemia. Will titrate insulin slowly. Should target glucose<180. Will give more Lantus and supper insulin today.
[2017-10-10] MEDS: CARVEDILOL 12.5 MG TABLET PO SCH ×2 (08:52→17:48)
[2017-10-10] MEDS: ACETAMINOPHEN 500 MG TABLET PO SCH ×3 (08:53→20:49)
[2017-10-10] MEDS: MULTI-VITAMIN PLAIN TABLET PO SCH (08:53)
[2017-10-10] MEDS: CEFPODOXIME 200mg TABLET PO SCH ×2 (08:53→17:48)
[2017-10-10] MEDS: BUMETANIDE 1 MG TABLET PO SCH ×2 (08:54→20:48)
[2017-10-10] MEDS: DOCUSATE SODIUM 100 MG CAPSULE PO SCH ×2 (08:54→20:49)
[2017-10-10] MEDS: ALLOPURINOL 100 MG TABLET PO SCH (08:54)
[2017-10-10] MEDS: PSYLLIUM PACKET PO SCH (08:55)
[2017-10-10] MEDS ORDERED: INSULIN GLARGINE 100unit/ml INJECTION SQ SCH (09:00)
--- NOTE | 2017-10-10 09:03 | XRay Report ---
EXAM: XR hip RT min 2V LOCATION OF DICTATION: [facility] HISTORY: fracture COMPARISON: No prior studies available for comparison. TECHNIQUE: FINDINGS: Total right hip replacement is demonstrated. No evidence for orthopedic hardware malfunction or fracture. No significant malalignment is demonstrated. Visualized bony pelvis appears to be intact. There is mild generalized osteopenia. Impression: Total right hip replacement without orthopedic hardware malfunction or fracture. .
[2017-10-10] MEDS: INSULIN GLARGINE 100unit/ml INJECTION SQ SCH (09:07)
--- NOTE | 2017-10-10 11:25 | Pharmacy Consult ---
Pharmacy Consult-Warfarin - Laboratory Information 10/09/17 05:02 INR 2.12 H - Consult Information 87 y.o. female with history of a. fib and chronic anticoagulation with Warfarin. Home warfarin dose = 4 mg po on Sat, Sat, Sat, Sat and 2 mg on , and Sat. goal INR range = 2.0 to 3.0. Date INR Dose 10/06 2.57 3 mg 10/07 2.49 4 mg 10/08 ---- 4 mg 10/09 2.12 4 mg 10/10 --- plan: home dose of 4 mg po daily except 2 mg on Saturday and Continued the patient's home dose of Warfarin 4 mg po daily except 2 mg po on Saturday and . Order INR every Saturday and Saturday. The pharmacy will continue to monitor the INR's and will adjust the Warfarin accordingly. Thank you for the Warfarin Dosing Protocol, Winifred Gonzalez [facility]
[2017-10-10] MEDS ORDERED: WARFARIN 2 MG TABLET PO SCH (12:00)
[2017-10-10] MEDS: INSULIN ASPART 100unit/ml INJECTION SQ SCH ×2 (12:16→17:48)
[2017-10-10] MEDS: HYDROCODONE/APAP 7.5 MG/325 MG TABLET PO PRN (16:18)
[2017-10-10] MEDS: MELATONIN 5 MG TABLET PO SCH (20:48)
[2017-10-10] MEDS: SIMVASTATIN 10 MG TABLET PO SCH (20:49)
[2017-10-10] MEDS: SENNA + DOCUSATE TABLET PO PRN (20:49)
[2017-10-11] MEDS: HYDROCODONE/APAP 7.5 MG/325 MG TABLET PO PRN ×5 (00:16→18:50)
[2017-10-11] MEDS: LEVOTHYROXINE 100 MCG TABLET PO SCH (06:10)
[2017-10-11] MEDS ORDERED: INSULIN ASPART 100unit/ml INJECTION SQ SCH (08:00)
[2017-10-11] MEDS: ACETAMINOPHEN 500 MG TABLET PO SCH ×3 (08:16→22:08)
[2017-10-11] MEDS: BUMETANIDE 1 MG TABLET PO SCH ×2 (08:16→22:08)
[2017-10-11] MEDS: SENNA + DOCUSATE TABLET PO PRN (08:16)
[2017-10-11] MEDS: CEFPODOXIME 200mg TABLET PO SCH ×2 (08:16→17:40)
[2017-10-11] MEDS: ALLOPURINOL 100 MG TABLET PO SCH (08:17)
[2017-10-11] MEDS: CARVEDILOL 12.5 MG TABLET PO SCH ×2 (08:17→17:40)
[2017-10-11] MEDS: SPIRONOLACTONE 25 MG TABLET PO SCH (08:17)
[2017-10-11] MEDS: MULTI-VITAMIN PLAIN TABLET PO SCH (08:17)
[2017-10-11] MEDS: DIGOXIN 125 MCG TABLET PO SCH (08:17)
[2017-10-11] MEDS: INSULIN GLARGINE 100unit/ml INJECTION SQ SCH (08:18)
[2017-10-11] MEDS: DOCUSATE SODIUM 100 MG CAPSULE PO SCH ×2 (08:19→22:07)
[2017-10-11] MEDS: PSYLLIUM PACKET PO SCH (08:19)
--- NOTE | 2017-10-11 09:00 | Pharmacy Consult ---
Pharmacy Consult-Warfarin - Laboratory Information 10/09/17 10/11/17 05:02 04:41 INR 2.12 H 2.16 H - Consult Information 87 y.o. female with history of a. fib and chronic anticoagulation with Warfarin. Home warfarin dose = 4 mg po on Sat, Sat, Sat, Sat and 2 mg on , and Sat. goal INR range = 2.0 to 3.0. Date INR Dose 10/06 2.57 3 mg 10/07 2.49 4 mg 10/08 ---- 4 mg 10/09 2.12 4 mg 10/10 --- 2 mg ; ordered home dose of 4 mg po daily except 2 mg on Saturday and 10/11 2.16 4 mg ; continue daily order INR therapeutic, continue the patient's home dose of Warfarin 4 mg po daily except 2 mg po on Saturday and . Order INR every Saturday and Saturday. The pharmacy will continue to monitor the INR's and will adjust the Warfarin accordingly. Thank you for the Warfarin Dosing Protocol, Winifred Gonzalez RPh
[2017-10-11] MEDS: INSULIN ASPART 100unit/ml INJECTION SQ PRN ×3 (10:10→22:39)
--- NOTE | 2017-10-11 11:06 | Progress Note ---
- Date 10/11/17 Subjective: Bing is seen today in follow up for her uncontrolled diabetes and hyponatremia. She is seen while participating in therapy in the therapy room and states she "feels like a failure". She admits to being frustrated because she is unable to do all the things asked (ie. take shoes on and off). She was reassured that she is making great gains in therapy and that it is a slow process. She continues to struggle with significant right hip pain that she rates at 10/10 with movement. Therapy reports that she isn't yelling out as much in pain as she was initially but continues to have significant pain. Currently pain is 8/10 while sitting. Her appetite is fair but she has not had a BM since admission. She is passing gas and continues with aggressive bowel motivation. Abdomen remains soft, slightly distended and nontender. She denies any chest pain, shortness of breath, abdominal pain, nausea or vomiting. Rouse remains in place and actively draining straw yellow urine. Blood sugars are improved since admission but remain elevated and variable with Dr. Salgado managing. She states that she continues to have some sinus congestion with greenish/yellow mucous but states that it has improved since admission. No cough, fevers or chills. Objective Vital signs: Temperature 97.5 F 10/11/17 08:00 Pulse Rate 76 10/11/17 08:17 Respiratory Rate 16 10/11/17 08:00 Blood Pressure 126/61 10/11/17 08:00 Pulse Oximetry 98 10/11/17 08:00 Height/Weight/BMI: Height 5 ft 7 in Weight 176 lb 12.972 oz Body Mass Index 27.1 Comments: Patient working with therapy and very pleasant on exam. - Constitutional Present: no acute distress, well nourished, well developed, cooperative - Routine HEENT Exam Head: Present: normocephalic, atraumatic Eye: Present: PERRL. Absent: conjunctival icterus ENT: Present: mucous membranes moist - Routine Respiratory Exam Present: decreased breath sounds Comments: bibasilar crackles noted without signs of distress; no conversational dyspnea or cough; nasal congestion noted, though patient reports improved. - Routine Cardiovascular Exam Present: RRR, S1, S2 - Routine Abdominal Exam Present: soft, non tender, distended. Absent: rebound, guarding, firm Comments: decreased bowel sounds; passing gas. - Routine Extremities Exam Present: edema (trace-1+ bilateral lower extremities.), pulses intact Comments: chronic tenderness with palpation to lower extremities secondary to uncontrolled diabetes; right hip tenderness with movement. - Routine Back/Spine/Pelvis Exam Back/Spine: Present: full ROM, kyphosis. Absent: vertebral tenderness - Routine Musculoskeletal Exam Musculoskeletal: Present: moving extremities well, limited range of motion ( right hip secondary to pain) - Routine Skin Exam Present: dry, warm. Absent: jaundice Comments: afebrile - Routine Neurological Exam Present: alert, oriented X3, moving all extremities, hearing grossly intact ( mildly hard of hearing), normal speech. Absent: facial asymmetry - Routine Lymphatic Exam Lymphatic: Absent: lymphedema - Routine Psychiatric Exam Present: cooperative Results - Labs CBC & Chem 7: 10/10/17 04:07 10/11/17 04:41 Assessment and Plan (1) Hip fracture, right Current visit: No Status: Acute (2) Benign essential hypertension Current visit: No Status: Chronic (3) Type 2 diabetes mellitus Current visit: No Status: Chronic (4) Renal insufficiency Problem details: I suspect this is due to diuretics in the presence of Mitral Regurgitation, and lower extremity venous insufficiency. Current visit: No Status: Acute (5) Venous insufficiency of both lower extremities Current visit: No Status: Chronic Assessment and Plan: Impression Acute Medical History Hip Fracture right, acute - no surgery and conservative treatment per Dr. Rdz. UTI secondary to klebsiella and Citrobacter - Vantin BID 10/06/17 - 10/13/17. Hyponatremia, acute as of 10/08/17. Hyperglycemia secondary to uncontrolled diabetes type II - A1c 10.0%. Chronic Medical History Chronic kidney disease stage IV - baseline SCr 1.8-2.0. Mitral regurgitation. Venous insufficiency lower extremities. Hypertension. Chronic anticoagulation on Coumadin. Chronic a-fib. CHF with EF 65%. Sleep apnea. Diabetes mellitus type 2, uncontrolled. Constipation. Hypergammaglobulemia. Anxiety. Hypothyroid. Hyperlipidemia. Gout. Mnire's disease. Osteoarthritis. History of breast CA. Plan - 10/09/17 (Mirakian) Patient continues to have significant pain with movement secondary to right intertrochanteric femur fracture. Continue pain control and therapy as directed by Dr. Álvarez. Continue to provide safe and supportive environment. If patient is able to tolerate therapy, she may avoid surgery. Dr. Rdz following. CXR on 10/09 Continue current treatment of Vantin 200mg BID for UTI secondary to Citrobacter and klebsiella. Treatment course 10/06/17-10/13/17. Continue to monitor closely for signs of persistent infection. Patient remains afebrile. Chronic a-fib, rate controlled. Continue warfarin therapy with pharmacy to manage. Current INR 2.16. Continue home medications including Coreg and digoxin. Blood pressure stable. Continue home medications and continue to monitor closely. Continue Bumex 1mg BID and spironolactone 25mg daily for diuresis. Daily weight remains stable. Monitor urinary output closely via Rouse - currently stable. Persistent mild bibasilar crackles noted on exam without respiratory distress or cough. CXR on 10/09 revealed cardiomegaly and vascular congestion without overt CHF and moderate hiatal hernia. Encourage incentive spirometry. Persistent hyponatremia with Na 132. Urine sodium was 34 and urine creatine was 22.1. Will discuss with Dr. Gao. Continue fluid restriction at 1800cc. Will recheck labs in AM to monitor electrolytes and renal function. Renal function stable with SCr at 1.7 and BUN at 56. Baseline SCr 1.8-2.1. Continue to monitor. Persistent hyperglycemia noted. Dr. Salgado consulted and titrating insulin dosages slowly to avoid hypoglycemia. Goal blood sugars <180. Continue to monitor closely and appreciate his time and expertise. Patient has not had BM since admission. Will schedule senna plus to BID with miralax daily and give MOM now and PRN for aggressive bowel motivation. Patient denies pain and is passing gas. We will continue to follow her medically during her stay on the inpatient rehabilitation unit. At time of discharge medical care or return to PCP, Dr. Roa. DVT Prophylaxis: SCD's Resuscitation Status: Do Not Resuscitate - Time spent with patient Time with patient PN: 35 minutes - Physician Narrative Physician: Lj Gao MD Narrative: Murray I have independently interviewed and examined. Chart reviewed. Case discussed with my PA. Above care plan developed with my supervision; agree with above. Doing fair this evening-frustration that recovery is going slow. Still had pain with any movement, not as severe as initially but still very limiting. Notes cough and congestion. No pain with breathing. Stools not moving. Lungs: decreased, no distress. CV: irregular AB: soft nt BS decreased MSE: awake alert appropriate Plan: Continue with IRU to maximize functional status. Encourage therapy. Continue pain control. Dulcolax to help bowels (ordered on the , but had not been used). Medically stable for IRU floor activities. Hospital Course Summary Disclaimer: The visit summary below is not to be considered part of the above Progress Note. Hospital Course: 10/08/17 13:42 Impression 1. Hip Fracture right 2 mitral regurgitation 3. Venous insufficiency lower extremities 4. renal insufficiency 5. Hypertension 6 sleep apnea 7 diabetes mellitus type 2 8. UTI Plan Right intertrochanteric femur fracture, requires physical therapy. If patient is able to tolerate therapy, she may avoid surgery. Orthopedics is to follow. Patient on warfarin, pharmacy consult. Vantin oral, 200 mg twice a day as Citrobacter and Klebsiella were noted in urine. Antibiotics to be continued through 10/13/2017. Blood pressure monitoring, continue current medications. Including Coreg and digitoxin. Diuretic continued, Aldactone. Blood sugar monitoring, continue Lantus 52 units daily. We will continue to follow him medically managed during her stay on the inpatient rehabilitation unit. At time of discharge medical care or return to PCP, Dr. Roa. Alfonso Garner MD Plan - 10/09/17 (Mirakian) Patient continues to have significant pain with movement secondary to right intertrochanteric femur fracture. Continue pain control and therapy as directed by Dr. Álvarez. Continue to provide safe and supportive environment. If patient is able to tolerate therapy, she may avoid surgery. Dr. Rdz following. Continue current treatment of Vantin 200mg BID for UTI secondary to Citrobacter and klebsiella. Treatment course 10/06/17-10/13/17. Continue to monitor closely for signs of persistent infection. Chronic a-fib, rate controlled. Continue warfarin therapy with pharmacy to manage. Current INR 2.12. Continue home medications including Coreg and digoxin. Blood pressure stable. Continue home medications and continue to monitor closely. Continue Bumex 1mg BID and spironolactone 25mg daily for diuresis. Monitor daily weight closely for signs of fluid overload. Monitor urinary output closely via Rouse - currently stable. Bibasilar crackles noted on exam. Will obtain CXR now. May need additional diuresis. Encourage incentive spirometry. Hyponatremia noted today with Na 133. Will obtain urine sodium and creatine. Initiate fluid restriction at 1800cc. Will recheck labs in AM to monitor electrolytes and renal function. Significant hyperglycemia noted with blood sugars averaging 300, always >250. Home medication including Lantus 53 units in AM. Will increase Lantus to 57 units in AM and add Novolog 2 units at breakfast, Novolog 3 units at Lunch and Novolog 5 units at dinner. Monitor blood sugars closely for hypoglycemia or persistent hyperglycemia. Will adjust insulin as indicated. A1c 10.0%. Will consult Dr. Salgado for additional treatment recommendations and expertise. Appreciate his time and expertise. Continue bowel motivation. We will continue to follow him medically managed during her stay on the inpatient rehabilitation unit. At time of discharge medical care or return to PCP, Dr. Roa. Alfonso Garner MD Plan - 10/09/17 (Mirakian) Patient continues to have significant pain with movement secondary to right intertrochanteric femur fracture. Continue pain control and therapy as directed by Dr. Álvarez. Continue to provide safe and supportive environment. If patient is able to tolerate therapy, she may avoid surgery. Dr. Rdz following. CXR on 10/09 Continue current treatment of Vantin 200mg BID for UTI secondary to Citrobacter and klebsiella. Treatment course 10/06/17-10/13/17. Continue to monitor closely for signs of persistent infection. Patient remains afebrile. Chronic a-fib, rate controlled. Continue warfarin therapy with pharmacy to manage. Current INR 2.16. Continue home medications including Coreg and digoxin. Blood pressure stable. Continue home medications and continue to monitor closely. Continue Bumex 1mg BID and spironolactone 25mg daily for diuresis. Daily weight remains stable. Monitor urinary output closely via Rouse - currently stable. Persistent mild bibasilar crackles noted on exam without respiratory distress or cough. CXR on 10/09 revealed cardiomegaly and vascular congestion without overt CHF and moderate hiatal hernia. Encourage incentive spirometry. Persistent hyponatremia with Na 132. Urine sodium was 34 and urine creatine was 22.1. Will discuss with Dr. Gao. Continue fluid restriction at 1800cc. Will recheck labs in AM to monitor electrolytes and renal function. Renal function stable with SCr at 1.7 and BUN at 56. Baseline SCr 1.8-2.1. Continue to monitor. Persistent hyperglycemia noted. Dr. Salgado consulted and titrating insulin dosages slowly to avoid hypoglycemia. Goal blood sugars <180. Continue to monitor closely and appreciate his time and expertise. Patient has not had BM since admission. Will schedule senna plus to BID with miralax daily and give MOM now and PRN for aggressive bowel motivation. Patient denies pain and is passing gas. We will continue to follow her medically during her stay on the inpatient rehabilitation unit. At time of discharge medical care or return to PCP, Dr. Roa. Addendum entered and electronically signed by KIM Galvin 10/11/17 11: 37: 1130 - Discussed patient care with Dr. Gao and review medical chart. Due to hyponatremia, will given NS 500 cc bolus over 2 hours due to decreased renal function and remove fluid restriction. Continue to monitor closely and will recheck labs in AM.
--- NOTE | 2017-10-11 11:29 | IRU Progress Note ---
- Subjective/Serverity of Illness Date: 10/11/17 Ms. Chaudhary continues to have quite a bit of pain in the right hip. I discussed the case with Dr. dRz earlier this week and again this morning. While he is willing to put wires in to stabilize the fracture, he is not certain all help her with regard to pain management. She is now on the fentanyl patch and has been on this for the past 3 days. Hydrocodone was restarted yesterday. She does not have excessive somnolence. It appears as though her pain is a bit better controlled although she is not certain about that. Primarily hurts with any movement of the leg. She denies any dyspnea or chest pain. Does have a cough and is producing some sputum. Remains on Vantin per the hospitalists. She has had no nausea no vomiting. Her blood sugars are much better controlled. Has been seen by Dr. Salgado in this regard. Her INR is therapeutic at 2.16 and her platelet count is improved at 93,000. Brief therapy update: For occupational therapy she has improved with upper body dressing from standby assistance to modified independent level. Lower body dressing requires total assistance. She has refused toilet assistance etc. Bed/ chair/realtor transfers remain with total assistance. With physical therapy she is nonambulatory. Bed/chair/wheelchair transfers are with minimum assistance whereas previously they were maximum assistance. Update on medical problems we are actively monitoring and managin. UTI with E. Coli. She remains afebrile. She is on Vantin either for this or for the productive cough. 2. Thrombocytopenia: Platelets are improved up to 93,000. Etiology of the decline likely was consumption with regard to the fracture. 3. Episodic confusion: It appears as though she may have some underlying dementia with superimposed delirium related to pain or pain medication. This is a barrier to her improvement as well. 4. Atrial fibrillation on warfarin with therapeutic INR: INR is therapeutic. No evidence of bleeding noted. 5. Diabetes mellitus: Is now being followed by Dr. Salgado and her sugars are doing better. Exam Vital Signs: Temperature 97.5 F 10/11/17 08:00 Pulse Rate 76 10/11/17 08:17 Respiratory Rate 16 10/11/17 08:00 Blood Pressure 126/61 10/11/17 08:00 Pulse Oximetry 98 10/11/17 08:00 Height/Weight/BMI: Height 1.7 m Weight 80.2 kg Body Mass Index 27.1 - Constitutional Present: moderate distress (with movement. However rest she is comfortable.), well nourished, well developed, average body habitus, cooperative - Routine HEENT Exam Eye: Present: EOMI ENT: Present: mucous membranes moist, dentition normal - Routine Neck Exam Present: supple - Routine Respiratory Exam Present: CTA bilaterally. Absent: rhonchi, wheezes, crackles - Routine Cardiovascular Exam Present: irregularly irregular. Absent: murmur - Routine Abdominal Exam Present: soft, normoactive bowel sounds, non distended. Absent: tenderness - Routine Extremities Exam Present: no edema. Absent: cyanosis, tenderness - Routine Skin Exam Present: dry, warm - Routine Neurological Exam Present: alert, oriented X3 (formal testing not done today. However she does exhibit some degree of memory loss.), CN II-XII intact - Routine Psychiatric Exam Present: normal thought process, cooperative, anxious Results IRU - Labs Labs: Reviewed labs. IRU A/P (1) Hip fracture, right Qualifiers: Encounter type: subsequent encounter Fracture type: closed Fracture healing: with routine healing Qualified Code(s): S72.001D - Fracture of unspecified part of neck of right femur, subsequent encounter for closed fracture with routine healing Current visit: No Status: Acute Repeat hip films reviewed and show no displacement. Remains in quite a bit of pain at times although I think it is improving based on reports. She is now on fentanyl patch plus as needed hydrocodone. Discussed with Dr. Rdz a couple of times. He is not certain that repair of the fracture (wires) would alleviate her pain. He would like to see how she does over the weekend I think that's a reasonable course. May need to increase the fentanyl patch a bit. (2) Renal insufficiency Problem details: I suspect this is due to diuretics in the presence of Mitral Regurgitation, and lower extremity venous insufficiency. Current visit: No Status: Acute Creatinine remains stable at 1.7. BUN up a bit compared to previously. (3) Venous insufficiency of both lower extremities Current visit: No Status: Chronic (4) Type 2 diabetes mellitus Qualifiers: Diabetes mellitus complication status: with hyperglycemia Diabetes mellitus shelter insulin use: with buttermilk drier operator use Qualified Code(s): E11.65 - Type 2 diabetes mellitus with hyperglycemia; Z79.4 - halfway (current) use of insulin; Z79.4 - halfway (current) use of insulin; Z79.4 - ad terminal makeup operator ( current) use of insulin; Z79.4 - ad terminal makeup operator (current) use of insulin Current visit: No Status: Chronic Blood sugars are improved at 145. Dr. Salgado following. (5) Benign essential hypertension Current visit: No Status: Chronic DVT Prophylaxis: SCD's Resuscitation Status: Do Not Resuscitate - Course Hospital Course: Fadi Álvarez MD: 10/08/17 10:38 She is just getting started with therapy. Significant pain with any movement. Working on sliding board transfers. She is hard of hearing but so far no definite evidence of confusion. 10/09/17 11:53 Working with therapy but having a lot of pain. Started on Vantin. Pain management continues to be a significant issue. Does have a cough for 1 week with some discolored sputum. However lungs are clear. 10/11/17 11:33 Making some progress with therapy. Pain continues to be a barrier. Medically she seems to be stable. Blood sugars improved. - Interventions to Obtain Goals PT Treatment Plan: Balance/Proprioception, Functional Activities, Gait Training , Patient/Family Education OT Treatment Plan: ADL (Basic Care), Balance Training, Pt./Family Education, Ther. Exercise for ADL Goals Progress/Modifications: Time spent with patient and on floor reviewing data and documentin min Barriers to dismissal: Pain, cognition, strength, endurance Medical decision-making: Ms. Chaudhary was globally reassessed today. I have discussed the case with Dr. Rdz as well. He is not certain if stabilization of the fracture would alleviate pain or not. He would like to see how she does over the weekend. Over the past 24 hours she should have received a stabilizing dose of the fentanyl patch. Remains on as needed hydrocodone in addition. We will try to time this prior to her therapies. She denies any nausea or vomiting. Cognition remains an issue and does require a bit of encouragement and motivation and verbal cues. Nevertheless she is making some progress. Her lungs remain clear although she does have a cough. It is my assessment that it is safe to continue therapy which we will do. Appreciate input of hospitalists as well as Dr. Salgado and Dr. Rdz.
[2017-10-11] MEDS: WARFARIN 4 MG TABLET PO SCH (12:29)
[2017-10-11] MEDS: INSULIN ASPART 100unit/ml INJECTION SQ SCH ×2 (12:29→17:40)
[2017-10-11] MEDS: MAGNESIUM CITRATE 296ml PO PRN ×2 (12:44→17:41)
--- NOTE | 2017-10-11 12:59 | Endocrinology Progress Note ---
Subjective Principal diagnosis: Type 2 Diabetes Mellitus, uncontrolled Interval history: Glucose did not rise overnight with the increased dose of Lantus yesterday. However it did shoot up after breakfast. Exam Vital signs: Temperature 97.5 F 10/11/17 08:00 Pulse Rate 76 10/11/17 08:17 Respiratory Rate 16 10/11/17 08:00 Blood Pressure 126/61 10/11/17 08:00 Pulse Oximetry 98 10/11/17 08:00 - Constitutional mild distress (hip pain), well nourished, well developed - Routine HEENT Exam Head: Present: normocephalic, atraumatic Eye: Present: PERRL ENT: Present: mucous membranes moist - Routine Neck Exam Absent: thyromegaly - Routine Respiratory Exam Absent: dyspnea - Routine Cardiovascular Exam Present: irregularly irregular - Routine Abdominal Exam Present: normoactive bowel sounds - Routine Extremities Exam Absent: edema - Routine Skin Exam Present: dry, warm - Routine Neurological Exam Present: alert, oriented X3 - Routine Psychiatric Exam Present: normal affect, normal thought process, good insight, good judgment - Additional findings Additional findings: Laboratory Tests 10/10/17 10/10/17 10/10/17 10:09 14:05 21:16 Glucometer 339 254 243 10/11/17 10/11/17 06:17 10:03 Glucometer 138 280 Assessment and Plan (1) Type 2 diabetes mellitus with hyperglycemia Current visit: Yes Status: Chronic Needs more insulin to cover breakfast. Increase AM Novolog to 5 units.
--- NOTE | 2017-10-11 14:31 | IRU Team Meeting ---
IRU Team Meeting - Nursing Bladder Assistive Devices Utilized:: Catheter Bladder Management Level of Assist: Total Assistance Vital Signs: Vital Signs - 24 hr 10/10/17 16:00 10/11/17 00:00 10/11/17 08:00 Temperature 97.7 F 98.0 F 97.5 F Pulse Rate 148 H 82 66 Respiratory Rate 16 18 16 Blood Pressure 123/71 115/66 126/61 Pulse Oximetry 92 94 98 10/11/17 08:17 Temperature Pulse Rate 76 Respiratory Rate Blood Pressure Pulse Oximetry Current Medications: Acetaminophen (Tylenol) 500 mg PO TID [facility] Last Admin: 10/11/17 14:27 Dose: 500 mg Hydrocodone Bitart/Acetaminophen ([place] 7.5/325) 1 tab PO Q4H PRN PRN Reason: Pain Last Admin: 10/11/17 14:26 Dose: 1 tab Al Hydroxide/Mg Hydroxide (Maalox Plus) 30 ml PO Q4HR PRN PRN Reason: Epigastric distress Allopurinol (Zyloprim) 100 mg PO DAILY [facility] Last Admin: 10/11/17 08:17 Dose: 100 mg Bumetanide (Bumex Tab) 1 mg PO BID [facility] Last Admin: 10/11/17 08:16 Dose: 1 mg Carvedilol (Coreg) 12.5 mg PO BIDWM [facility] Last Admin: 10/11/17 08:17 Dose: 12.5 mg Cefpodoxime Proxetil (Vantin) 200 mg PO BIDWM [facility] Stop: 10/14/17 09:00 Last Admin: 10/11/17 08:16 Dose: 200 mg Cholecalciferol (Vit. D-3) 2,000 unit PO DAILY [facility] Last Admin: 10/11/17 08:16 Dose: 2,000 unit Digoxin (Lanoxin) 125 mcg PO MoWeFr@0900 [facility] Last Admin: 10/11/17 08:17 Dose: 125 mcg Docusate Sodium (Colace) 100 mg PO BID [facility] Last Admin: 10/11/17 08:19 Dose: 100 mg Fentanyl (Duragesic Patch) 12 mcg TD Q3D [facility] Last Admin: 10/11/17 12:34 Dose: 12 mcg Fentanyl Citrate (Duragesic Patch Removal) 1 removal TD Q3D [facility] Glucose (Glutose 15) 37.5 gm PO PRN PRN PRN Reason: Hypoglycemia Insulin Aspart (Novolog) 2 - 8 unit SQ SS PRN; Protocol PRN Reason: Hyperglycemia Last Admin: 10/11/17 10:10 Dose: 5 unit Insulin Aspart (Novolog) 3 unit SQ WL [facility] Last Admin: 10/11/17 12:29 Dose: 3 unit Insulin Aspart (Novolog) 6 unit SQ WS [facility] Last Admin: 10/10/17 17:48 Dose: 6 unit Insulin Aspart (Novolog) 5 unit SQ WB [facility] Insulin Glargine (Lantus) 62 unit SQ DAILY [facility] Last Admin: 10/11/17 08:18 Dose: 62 unit Levothyroxine Sodium (Synthroid) 100 mcg PO ACB [facility] Last Admin: 10/11/17 06:10 Dose: 100 mcg Magnesium Citrate (Citrate Of Magnesia) 0 ml PO ONCE PRN PRN Reason: Constipation Last Admin: 10/11/17 12:44 Dose: 296 ml Magnesium Hydroxide (Mom) 30 ml PO DAILY PRN PRN Reason: Constipation Melatonin (Melatonin) 5 mg PO [facility] Last Admin: 10/10/17 20:48 Dose: 5 mg Multivitamins (Theragran) 1 tab PO DAILY [facility] Last Admin: 10/11/17 08:17 Dose: 1 tab Nystatin (Mycostatin) 1 applic TP PRN PRN PRN Reason: Rash Ondansetron HCl (Zofran) 4 mg IVP Q6H PRN PRN Reason: Nausea &/or vomiting Psyllium Hydrophilic Mucilloid (Metamucil) 1 packet PO DAILY [facility] Last Admin: 10/11/17 08:19 Dose: 1 packet Senna/Docusate Sodium (Senna Plus Tablet) 1 tab PO BID [facility] Simvastatin (Zocor) 10 mg PO HS [facility] Last Admin: 10/10/17 20:49 Dose: 10 mg Spironolactone (Aldactone) 25 mg PO MoWeFr@0900 [facility] Last Admin: 10/11/17 08:17 Dose: 25 mg Warfarin Sodium (Coumadin Protocol) 0 MC NOTE JIE Warfarin Sodium (Coumadin) 2 mg PO TUTH [facility] Last Admin: 10/10/17 12:17 Dose: 2 mg Warfarin Sodium (Coumadin) 4 mg PO SUMOWEFRSA [facility] Last Admin: 10/11/17 12:29 Dose: 4 mg Current Medical Issues: Chronic kidney disease with dehydration at present, cognition deficit, diabetes mellitus, hypertension, pain management Comments: I certify that I personally led the interdisciplinary team meeting and agree with comments, barriers and goals indicated. Team meeting was held in the patient's room with the patient and the following family members present: patient alone Ms. Chaudhary is a pleasant 87-year-old female. She continues to have significant pain with the right hip. She has been started on a fentanyl patch as well as as needed hydrocodone which seems to have helped considerably. Appetite is fairly good. Has not had a bowel movement for a while and she has received magnesium citrate. She is getting IV fluids today due to some elevation of BUN noted. Blood sugars are improved control but still require manipulation of insulin. Is being followed by Dr. Salgado at present. - Physical Therapy Bed, Chair, Wheelchair Transfer Assist: Moderate Assistance Ambulation Ability: Patient Unsafe/Unable Wheelchair Propulsion Ability: Maximal Assistance Wheelchair Propulsion Distance: 65 Stair Climbing Ability: Patient Unsafe/Unable Car Transfer Ability: Patient Unsafe/Unable Comments: Patient is variable in her expression of pain. At times if there is just a slight touch to the right hip there is significant pain. At other times if the patient is distracted, movement of the right hip can occur without much discomfort. She is making progress toward goals. Not able to walk at present and maintain her touch weightbearing status. She is requiring less assistance with bed mobility and slide board transfers. She is doing more activities with verbal cues only. Continues to struggle with the pain. - Occupational Therapy Eating Ability: Independent Grooming Ability: Stand By Assist/Supervision Bathing Ability: Moderate Assistance Upper Body Dressing Ability: Stand By Assist/Supervision Lower Body Dressing Ability: Total Assistance Tub Transfer Assist: Patient Refuses Toileting Assist: Total Assistance Toilet Transfer Assist: Maximal Assistance, 1 Person Assist Comments: She is working with occupational therapy. Her greatest barrier appears to be level of pain. She does tend to moan and scream at times with even minimal movement. However that appears to be improved. She does dissipate fully and expresses a desire that she can do we ask. Improvements have been noted with functional sliding board transfers. - Goals Physical Therapy Goals: 10/11/17 Goals: 1.) 5/7 A with slide board transfers. 2.) 4/7 min A with bed mobility Occupational Therapy Goals: OT goals 10/11/17: 1.) Transfer to BSC w/ slide board w/ min assist. 2.) LB dressing w/ min assist. Other Patient Goals: blood glucose within 100-200 for the next 5 days. bowel movement within the next 24 hours - Barriers to Discharge Barriers to Attaining Goals: Endurance, Comprehension, Pain Control - Care Plan Anticipated Length of Stay (days): 5 (anticipated length of stay is pending recommendation of orthopedics.) Anticipated DC Destination: [facility]ility I have led this team conference and agree with the plan.
[2017-10-11] MEDS: MELATONIN 5 MG TABLET PO SCH (22:07)
[2017-10-11] MEDS: SIMVASTATIN 10 MG TABLET PO SCH (22:07)
[2017-10-11] MEDS: SENNA + DOCUSATE TABLET PO SCH (22:08)
[2017-10-12] MEDS: HYDROCODONE/APAP 7.5 MG/325 MG TABLET PO PRN ×2 (05:49→10:34)
[2017-10-12] MEDS: LEVOTHYROXINE 100 MCG TABLET PO SCH (05:50)
[2017-10-12] MEDS: DOCUSATE SODIUM 100 MG CAPSULE PO SCH ×2 (08:37→20:57)
[2017-10-12] MEDS: PSYLLIUM PACKET PO SCH (08:37)
[2017-10-12] MEDS: SENNA + DOCUSATE TABLET PO SCH ×2 (08:37→21:06)
[2017-10-12] MEDS: MULTI-VITAMIN PLAIN TABLET PO SCH (09:09)
[2017-10-12] MEDS: BUMETANIDE 1 MG TABLET PO SCH ×2 (09:09→21:03)
[2017-10-12] MEDS: CEFPODOXIME 200mg TABLET PO SCH ×2 (09:09→18:07)
[2017-10-12] MEDS: ALLOPURINOL 100 MG TABLET PO SCH (09:10)
[2017-10-12] MEDS: CARVEDILOL 12.5 MG TABLET PO SCH ×2 (09:10→18:07)
[2017-10-12] MEDS: ACETAMINOPHEN 500 MG TABLET PO SCH ×3 (09:10→21:04)
[2017-10-12] MEDS: INSULIN GLARGINE 100unit/ml INJECTION SQ SCH (09:11)
[2017-10-12] MEDS: INSULIN ASPART 100unit/ml INJECTION SQ SCH ×3 (09:11→18:08)
[2017-10-12] MEDS: INSULIN ASPART 100unit/ml INJECTION SQ PRN ×3 (10:35→21:05)
[2017-10-12] MEDS: WARFARIN 4 MG TABLET PO SCH (12:49)
[2017-10-12] MEDS: SIMVASTATIN 10 MG TABLET PO SCH (21:03)
[2017-10-12] MEDS: MELATONIN 5 MG TABLET PO SCH (21:04)
[2017-10-12] MEDS: SALINE FLUSH 10ml SYRINGE IV PRN (21:17)
[2017-10-13] MEDS: HYDROCODONE/APAP 7.5 MG/325 MG TABLET PO PRN ×4 (02:07→17:43)
[2017-10-13] MEDS: LEVOTHYROXINE 100 MCG TABLET PO SCH (05:39)
[2017-10-13] MEDS: CEFPODOXIME 200mg TABLET PO SCH ×2 (09:04→17:42)
[2017-10-13] MEDS: ALLOPURINOL 100 MG TABLET PO SCH (09:04)
[2017-10-13] MEDS: BUMETANIDE 1 MG TABLET PO SCH ×2 (09:04→20:33)
[2017-10-13] MEDS: DOCUSATE SODIUM 100 MG CAPSULE PO SCH ×2 (09:04→20:33)
[2017-10-13] MEDS: CARVEDILOL 12.5 MG TABLET PO SCH ×2 (09:04→17:42)
[2017-10-13] MEDS: MULTI-VITAMIN PLAIN TABLET PO SCH (09:04)
[2017-10-13] MEDS: INSULIN ASPART 100unit/ml INJECTION SQ SCH ×3 (09:05→17:42)
[2017-10-13] MEDS: INSULIN GLARGINE 100unit/ml INJECTION SQ SCH (09:05)
[2017-10-13] MEDS: SENNA + DOCUSATE TABLET PO SCH ×2 (09:06→20:32)
[2017-10-13] MEDS: ACETAMINOPHEN 500 MG TABLET PO SCH ×3 (09:06→20:33)
[2017-10-13] MEDS: SALINE FLUSH 10ml SYRINGE IV PRN (09:06)
[2017-10-13] MEDS: PSYLLIUM PACKET PO SCH (09:06)
[2017-10-13] MEDS: INSULIN ASPART 100unit/ml INJECTION SQ PRN ×2 (11:29→16:11)
[2017-10-13] MEDS: WARFARIN 4 MG TABLET PO SCH (12:41)
[2017-10-13] MEDS: SIMVASTATIN 10 MG TABLET PO SCH (20:33)
[2017-10-13] MEDS: MELATONIN 5 MG TABLET PO SCH (20:33)
[2017-10-14] MEDS: HYDROCODONE/APAP 7.5 MG/325 MG TABLET PO PRN ×4 (01:53→17:47)
[2017-10-14] MEDS: LEVOTHYROXINE 100 MCG TABLET PO SCH ×2 (05:14→05:49)
[2017-10-14] MEDS ORDERED: INSULIN ASPART 100unit/ml INJECTION SQ SCH (07:55)
--- NOTE | 2017-10-14 08:12 | Endocrinology Progress Note ---
Subjective Principal diagnosis: Type 2 Diabetes Mellitus, uncontrolled Interval history: Patient bathing this morning when I made rounds. Glucose levels have smoothed out, but are high postprandially. Exam Vital signs: Temperature 98.2 F 10/13/17 20:31 Pulse Rate 65 10/13/17 20:31 Respiratory Rate 16 10/13/17 20:31 Blood Pressure 112/63 10/13/17 20:31 Pulse Oximetry 95 10/13/17 20:31 - Additional findings Additional findings: Laboratory Tests 10/13/17 10/13/17 10/13/17 10:11 11:25 14:08 Glucometer 292 232 245 10/13/17 20:01 Glucometer 148 Assessment and Plan (1) Type 2 diabetes mellitus with hyperglycemia Current visit: Yes Status: Chronic Increase meal insulin boluses a bit further.
[2017-10-14] MEDS: CARVEDILOL 12.5 MG TABLET PO SCH ×2 (08:50→17:47)
[2017-10-14] MEDS: CEFPODOXIME 200mg TABLET PO SCH (08:50)
[2017-10-14] MEDS: BUMETANIDE 1 MG TABLET PO SCH ×2 (08:51→20:21)
[2017-10-14] MEDS: ALLOPURINOL 100 MG TABLET PO SCH (08:51)
[2017-10-14] MEDS: ACETAMINOPHEN 500 MG TABLET PO SCH ×3 (08:51→20:21)
[2017-10-14] MEDS: DOCUSATE SODIUM 100 MG CAPSULE PO SCH ×2 (08:52→20:21)
[2017-10-14] MEDS: DIGOXIN 125 MCG TABLET PO SCH (08:52)
[2017-10-14] MEDS: INSULIN GLARGINE 100unit/ml INJECTION SQ SCH (08:52)
[2017-10-14] MEDS: MULTI-VITAMIN PLAIN TABLET PO SCH (08:53)
[2017-10-14] MEDS: SENNA + DOCUSATE TABLET PO SCH ×2 (08:53→20:21)
[2017-10-14] MEDS: PSYLLIUM PACKET PO SCH (08:54)
[2017-10-14] MEDS: SPIRONOLACTONE 25 MG TABLET PO SCH (08:54)
[2017-10-14] MEDS: INSULIN ASPART 100unit/ml INJECTION SQ PRN ×3 (11:26→19:45)
--- NOTE | 2017-10-14 11:27 | IRU Progress Note ---
- Subjective/Serverity of Illness Date: 10/14/17 Ms. Chaudhary was evaluated on the inpatient rehabilitation unit. She is cooperative with therapy but continues to complain of significant pain with transfers etc. When she is at rest there is no pain. According to therapy, her pain control is improved and she has not been crying out as much. Brief therapy update: For occupational therapy she requires moderate assistance for bathing. Upper extremity dressing is with minimum assistance and lower extremity dressing is with maximum assistance. Toileting assistance is now total assistance level although previously she totally refused that. With physical therapy, she requires minimum to moderate assistance for transfers. Overall this is improving. Update on medical problems we are actively monitoring and managin. UTI with E. Coli. Afebrile and asymptomatic. 2. Thrombocytopenia: Platelets have normalized at 230,000. No evidence of bleeding. 3. Episodic confusion: She is stable in this regard. 4. Atrial fibrillation on warfarin with therapeutic INR: INR is therapeutic at 2.16. 5. Diabetes mellitus: She is stable although mealtime insulin will be increased a bit. Exam Vital Signs: Temperature 97.7 F 10/14/17 08:00 Pulse Rate 68 10/14/17 08:52 Respiratory Rate 14 10/14/17 08:00 Blood Pressure 130/67 10/14/17 08:00 Pulse Oximetry 97 10/14/17 08:00 Height/Weight/BMI: Height 1.7 m Weight 81.8 kg Body Mass Index 27.1 - Constitutional Present: moderate distress, well nourished, well developed, cooperative - Routine HEENT Exam Head: Present: normocephalic, atraumatic Eye: Present: EOMI ENT: Present: mucous membranes moist, dentition normal - Routine Neck Exam Present: supple, full ROM - Routine Respiratory Exam Present: CTA bilaterally. Absent: wheezes - Routine Cardiovascular Exam Present: S1, S2, irregularly irregular. Absent: murmur, S3, S4 - Routine Abdominal Exam Present: soft, normoactive bowel sounds, non distended. Absent: tenderness - Routine Extremities Exam Present: normal capillary refill - Routine Skin Exam Present: dry, warm - Routine Neurological Exam Present: alert, CN II-XII intact. Absent: oriented X3 (continues to demonstrate evidence of some memory loss.) Results IRU - Labs Labs: Reviewed recent labs, therapy progress notes and other providers notes. IRU A/P (1) Hip fracture, right Qualifiers: Encounter type: subsequent encounter Fracture type: closed Fracture healing: with routine healing Qualified Code(s): S72.001D - Fracture of unspecified part of neck of right femur, subsequent encounter for closed fracture with routine healing Current visit: No Status: Acute Patient has a periprosthetic hip fracture on the right. Pain management is improved at present. She will require supervision level assistance for some time. (2) Renal insufficiency Problem details: I suspect this is due to diuretics in the presence of Mitral Regurgitation, and lower extremity venous insufficiency. Current visit: No Status: Acute (3) Venous insufficiency of both lower extremities Current visit: No Status: Chronic (4) Type 2 diabetes mellitus Qualifiers: Diabetes mellitus complication status: with hyperglycemia Diabetes mellitus penitentiary insulin use: with watermelon inspector use Qualified Code(s): E11.65 - Type 2 diabetes mellitus with hyperglycemia; Z79.4 - petroleum terminal plant operator (current) use of insulin; Z79.4 - [facility] (current) use of insulin; Z79.4 - [facility] ( current) use of insulin; Z79.4 - [facility] (current) use of insulin Current visit: No Status: Chronic Blood sugars are reviewed and are improved. Dr. Salgado following. Mealtime insulin to be increased. (5) Benign essential hypertension Current visit: No Status: Chronic DVT Prophylaxis: SCD's Resuscitation Status: Do Not Resuscitate - Course Hospital Course: Fadi Álvarez MD: 10/08/17 10:38 She is just getting started with therapy. Significant pain with any movement. Working on sliding board transfers. She is hard of hearing but so far no definite evidence of confusion. 10/09/17 11:53 Working with therapy but having a lot of pain. Started on Vantin. Pain management continues to be a significant issue. Does have a cough for 1 week with some discolored sputum. However lungs are clear. 10/11/17 11:33 Making some progress with therapy. Pain continues to be a barrier. Medically she seems to be stable. Blood sugars improved. 10/14/17 11:27 Blood sugars are better. Medically she is stable. Pain management is improved. - Interventions to Obtain Goals PT Treatment Plan: Balance/Proprioception, Functional Activities, Gait Training , Patient/Family Education OT Treatment Plan: ADL (Basic Care), Balance Training, Pt./Family Education, Ther. Exercise for ADL
[2017-10-14] MEDS: WARFARIN 4 MG TABLET PO SCH (12:41)
[2017-10-14] MEDS: INSULIN ASPART 100unit/ml INJECTION SQ SCH ×2 (12:41→17:46)
[2017-10-14] MEDS: SALINE FLUSH 10ml SYRINGE IV PRN (17:47)
[2017-10-14] MEDS: MELATONIN 5 MG TABLET PO SCH (20:21)
[2017-10-14] MEDS: SIMVASTATIN 10 MG TABLET PO SCH (20:21)
[2017-10-15] MEDS: HYDROCODONE/APAP 7.5 MG/325 MG TABLET PO PRN ×5 (00:31→15:16)
[2017-10-15] MEDS: LEVOTHYROXINE 100 MCG TABLET PO SCH ×2 (04:59→05:45)
--- NOTE | 2017-10-15 07:22 | Pharmacy Consult ---
Pharmacy Consult-Warfarin - Laboratory Information 10/09/17 10/11/17 10/15/17 05:02 04:41 04:22 INR 2.12 H 2.16 H 3.91 H - Consult Information No warfarin will be ordered today. Will continue to monitor. Thank you.
[2017-10-15] MEDS ORDERED: INSULIN ASPART 100unit/ml INJECTION SQ SCH (07:28)
--- NOTE | 2017-10-15 07:30 | Endocrinology Progress Note ---
Subjective Principal diagnosis: Type 2 Diabetes Mellitus, uncontrolled Interval history: Reports slow progress with therapy. Sugars have been improving without hypoglycemia. Exam Vital signs: Temperature 97.7 F 10/14/17 19:29 Pulse Rate 68 10/14/17 19:29 Respiratory Rate 16 10/14/17 19:29 Blood Pressure 106/59 10/14/17 19:29 Pulse Oximetry 97 10/14/17 19:29 - Constitutional no acute distress - Routine HEENT Exam Head: Present: normocephalic, atraumatic Eye: Present: EOMI, PERRL ENT: Present: mucous membranes moist - Routine Neck Exam Absent: lymphadenopathy, thyromegaly - Routine Respiratory Exam Absent: dyspnea - Routine Cardiovascular Exam Present: RRR - Routine Abdominal Exam Present: normoactive bowel sounds - Routine Extremities Exam Absent: edema - Routine Skin Exam Present: dry, warm - Routine Neurological Exam Present: alert, moving all extremities - Routine Psychiatric Exam Present: normal affect, normal thought process, cooperative - Additional findings Additional findings: Laboratory Tests 10/14/17 10/14/17 10/14/17 10:40 14:00 19:25 Glucometer 267 194 206 10/15/17 06:14 Glucometer 89 Assessment and Plan (1) Type 2 diabetes mellitus with hyperglycemia Current visit: Yes Status: Chronic Still has excessive rise of glucose after breakfast. Will advance another couple of units in AM.
[2017-10-15] MEDS: DOCUSATE SODIUM 100 MG CAPSULE PO SCH ×2 (08:29→20:26)
[2017-10-15] MEDS: BUMETANIDE 1 MG TABLET PO SCH ×2 (08:29→20:26)
[2017-10-15] MEDS: ALLOPURINOL 100 MG TABLET PO SCH (08:29)
[2017-10-15] MEDS: CARVEDILOL 12.5 MG TABLET PO SCH ×2 (08:30→17:21)
[2017-10-15] MEDS: PSYLLIUM PACKET PO SCH (08:30)
[2017-10-15] MEDS: MULTI-VITAMIN PLAIN TABLET PO SCH (08:31)
[2017-10-15] MEDS: SENNA + DOCUSATE TABLET PO SCH ×2 (08:31→20:26)
[2017-10-15] MEDS: ACETAMINOPHEN 500 MG TABLET PO SCH ×3 (08:42→20:27)
[2017-10-15] MEDS: INSULIN GLARGINE 100unit/ml INJECTION SQ SCH (08:43)
[2017-10-15] MEDS: INSULIN ASPART 100unit/ml INJECTION SQ PRN ×2 (10:21→16:00)
--- NOTE | 2017-10-15 11:15 | IRU Progress Note ---
- Subjective/Serverity of Illness Date: 10/15/17 Bing was evaluated in her room on inpatient rehabilitation with therapy present. Pain management has been difficult. She has seemed to be better with the use of the fentanyl patch. Continues to cry out in pain with even minimal movement. However, if she is distracted, pain appears to be much improved. Cognition continues to be an issue with carryover from one day to the next. Update on medical issues we are actively monitoring and managing: She is being followed by Dr. Vignesh Salgado regarding her diabetes. Sugars continued to rise a bit too much after mealtime and he is adjusting mealtime insulin. She has had no hypoglycemic episodes. Her blood pressure is well controlled for the most part. She denies any chest pain or shortness of breath. Cognition continues to be an issue as noted above. Brief therapy update: She requires moderate assistance for bathing, minimum assistance for upper body dressing and moderate assistance for lower body dressing with occupational therapy. She is standby assistance for transfers with physical therapy and standby assistance for wheelchair ambulation. Exam Vital Signs: Temperature 97.7 F 10/15/17 08:00 Pulse Rate 67 10/15/17 08:00 Respiratory Rate 16 10/15/17 08:00 Blood Pressure 147/68 H 10/15/17 08:00 Pulse Oximetry 97 10/15/17 08:00 Height/Weight/BMI: Height 1.7 m Weight 81.8 kg Body Mass Index 27.1 - Constitutional Present: moderate distress (degree of pain is variable. When she is at rest she is pain-free but with any movement she tends to cry out.), well nourished, well developed, cooperative - Routine HEENT Exam Head: Present: normocephalic Eye: Present: EOMI ENT: Present: mucous membranes moist, dentition normal - Routine Neck Exam Present: supple, full ROM - Routine Respiratory Exam Present: CTA bilaterally. Absent: accessory muscle use, respiratory distress, wheezes, crackles - Routine Cardiovascular Exam Present: RRR, S1, S2. Absent: murmur, S3, S4 - Routine Abdominal Exam Present: soft, normoactive bowel sounds, non distended. Absent: tenderness - Routine Extremities Exam Present: no edema, normal capillary refill IRU A/P (1) Hip fracture, right Qualifiers: Encounter type: subsequent encounter Fracture type: closed Fracture healing: with routine healing Qualified Code(s): S72.001D - Fracture of unspecified part of neck of right femur, subsequent encounter for closed fracture with routine healing Current visit: No Status: Acute She has had nonoperative treatment of her right periprosthetic hip fracture. Pain management is improved but still difficult. I think playing into this is her reduced cognition which, in effect, allows her to "forget" her pain until she is reminded about it with movement. Therefore she is unable to anticipated as well. Nevertheless, she is improving with therapy. Plans are for her to go back to her nursing facility with continued skilled level physical therapy and occupational therapy. (2) Renal insufficiency Problem details: I suspect this is due to diuretics in the presence of Mitral Regurgitation, and lower extremity venous insufficiency. Current visit: No Status: Acute (3) Venous insufficiency of both lower extremities Current visit: No Status: Chronic (4) Type 2 diabetes mellitus Qualifiers: Diabetes mellitus complication status: with hyperglycemia Diabetes mellitus fpc insulin use: with fpc use Qualified Code(s): E11.65 - Type 2 diabetes mellitus with hyperglycemia; Z79.4 - [facility] (current) use of insulin; Z79.4 - buttermaker helper (current) use of insulin; Z79.4 - buttermaker helper ( current) use of insulin; Z79.4 - [facility] (current) use of insulin Current visit: No Status: Chronic Followed by Dr. Salgado. Insulin is being adjusted. (5) Benign essential hypertension Current visit: No Status: Chronic DVT Prophylaxis: SCD's Resuscitation Status: Do Not Resuscitate - Course Hospital Course: Fadi Álvarez MD: 10/08/17 10:38 She is just getting started with therapy. Significant pain with any movement. Working on sliding board transfers. She is hard of hearing but so far no definite evidence of confusion. 10/09/17 11:53 Working with therapy but having a lot of pain. Started on Vantin. Pain management continues to be a significant issue. Does have a cough for 1 week with some discolored sputum. However lungs are clear. 10/11/17 11:33 Making some progress with therapy. Pain continues to be a barrier. Medically she seems to be stable. Blood sugars improved. 10/14/17 11:27 Blood sugars are better. Medically she is stable. Pain management is improved. 10/15/17 11:15 Slow progress with therapy. Blood sugars improved. Anticipate transfer to assisted tomorrow. - Interventions to Obtain Goals PT Treatment Plan: Balance/Proprioception, Functional Activities, Gait Training , Patient/Family Education OT Treatment Plan: ADL (Basic Care), Balance Training, Pt./Family Education, Ther. Exercise for ADL
--- NOTE | 2017-10-15 11:41 | Discharge Summary ---
Discharge Information Date of admission: 10/07/17 16:20 Anticipated date of discharge: 10/16/17 Attending Physician: Fadi Álvarez MD Consults: 10/07/17 16:52 Physician Consult [CONS] Routine Consulting Provider: Alex Rdz Reason For Exam: Right femur fx Ordering Provider has Notified Insulator Cutter And Former: Yes Comment: Done in ER. Ok to see Saturday. 10/07/17 17:12 Physician Consult [CONS] Routine Consulting Provider: Alfonso Garner Reason For Exam: medical management Ordering Provider has Notified Insulator Cutter And Former: No 10/09/17 12:32 Physician Consult [CONS] Routine Consulting Provider: Vignesh Salgado Reason For Exam: uncontrolled diabetes Ordering Provider has Notified Insulator Cutter And Former: No - Discharge Diagnosis (1) Hip fracture, right Status: Acute (2) Renal insufficiency Status: Acute (3) Venous insufficiency of both lower extremities Status: Chronic (4) Type 2 diabetes mellitus Status: Chronic (5) Benign essential hypertension Status: Chronic 1. Right sided periprosthetic hip fracture 2. Urinary tract infection-not hospital-acquired and resolved 3. Diabetes mellitus type 2 on long-term insulin, not controlled 4. Chronic kidney disease stage IV 5. Reduced cognition - Laboratory Labs: 10/14/17 04:20 10/14/17 04:20 History of Present Illness HPI: 10/15/17 11:39 Ms. Chaudhary is an 87-year-old white female resident of [facility]. She has a history of bilateral hip replacements. She states that she was up getting ready to brush her teeth on 10/06/2017 and one of her feet got hooked around a chair. This caused her to fall. She was brought to the emergency department where she was found to have a periprosthetic hip fracture on the right side. She was seen by Dr. Rdz. No displacement was noted and it was determined that nonoperative treatment would be appropriate. She also was noted to have pyuria and was treated for a urinary tract infection (e. coli) on acute care which concluded while on inpatient rehabilitation. She also has diabetes mellitus on long-term insulin therapy. Her blood sugars were running over 200 and, finally, she was noted to have thrombocytopenia at 78,000 along with a history of atrial fibrillation on chronic Coumadin therapy. She was transferred to acute inpatient rehabilitation on 10/07/2017 for a multidisciplinary approach to her rehabilitation. 10/15/17 11:41 10/15/17 11:41 Hospital Course This is a general summary of the patient's hospital course. For more details refer to the complete medical record. This very pleasant patient was transferred to inpatient rehabilitation. The following medical issues were addressed while on acute inpatient rehabilitation: 1. Diabetes mellitus: She required adjustment in her insulin doses. She was followed by the hospitalist service as well as Dr. Vignesh Salgado in this regard. Her blood sugars were more well controlled at the time of dismissal. 2. Recent urinary tract infection: She was treated with intravenous Rocephin while on acute and this resolved while on inpatient rehabilitation. No further symptoms are reported. 3. Chronic kidney disease: Her creatinine remains stable. 4. Reduced cognition: This was a barrier to her recovery and dismissal. 5. Thrombocytopenia: Her platelet count initially was 78,000 area did the final platelet count measured on acute inpatient rehabilitation was 130,000 which had normalized. It is felt the most likely this reduction in platelets it was due to consumption although further analysis was not undertaken. She was seen by occupational therapy while on acute inpatient rehabilitation. Eating was initially independent and ultimately modified independent. She was standby assist for grooming upon admission and dismissal. She was able to bathe with moderate assistance upon admission and dismissal. Upper body dressing was initially with standby assistance and ultimately minimum assistance at dismissal. Lower body dressing improved from total assistance to moderate assistance at dismissal. She initially refuted toileting assist capability bit overweight was able to perform this with maximum assistance. Toilet transfer assist was initially refused and ultimately would be performed with moderate assistance. She was able to perform bed/chair/wheelchair transfers with total assistance. She was seen by physical therapy. Bed/chair/wheelchair transfers were initially with maximum assistance and ultimately with standby assistance. She was not able to ambulate but was able to perform wheelchair propulsion at 123 feet with standby assistance level. Pain management was very difficult for this patient. She would cry out in pain frequently. We did add on a fentanyl patch which was beneficial for her. In addition she has Glenshaw available for as needed use. We did discuss the case on several occasions with Dr. Rdz. He was not opposed to repairing the hip, although it was felt that placing wires etc. it may not help her pain management. In addition, pain management became improved after these the fentanyl patch. For this reason it was chosen to treat this nonoperatively and it should heal up without difficulty. She was dismissed in improved condition on 10/16/2017 to her room at [facility] for continued physical therapy, occupational therapy and long-term. It is noted that her INR is 3.91. The hospitalist service recommends warfarin be held today and repeat INR be obtained on October 17. Her current warfarin dose has been 2 mg every Saturday, Saturday and Saturday and 4 mg all other days. Hospital course: 10/08/17 13:42 Impression 1. Hip Fracture right 2 mitral regurgitation 3. Venous insufficiency lower extremities 4. renal insufficiency 5. Hypertension 6 sleep apnea 7 diabetes mellitus type 2 8. UTI Plan Right intertrochanteric femur fracture, requires physical therapy. If patient is able to tolerate therapy, she may avoid surgery. Orthopedics is to follow. Patient on warfarin, pharmacy consult. Vantin oral, 200 mg twice a day as Citrobacter and Klebsiella were noted in urine. Antibiotics to be continued through 10/13/2017. Blood pressure monitoring, continue current medications. Including Coreg and digitoxin. Diuretic continued, Aldactone. Blood sugar monitoring, continue Lantus 52 units daily. We will continue to follow him medically managed during her stay on the inpatient rehabilitation unit. At time of discharge medical care or return to PCP, Dr. Roa. Alfonso Garner MD Plan - 10/09/17 ([place]) Patient continues to have significant pain with movement secondary to right intertrochanteric femur fracture. Continue pain control and therapy as directed by Dr. Álvarez. Continue to provide safe and supportive environment. If patient is able to tolerate therapy, she may avoid surgery. Dr. Rdz following. Continue current treatment of Vantin 200mg BID for UTI secondary to Citrobacter and klebsiella. Treatment course 10/06/17-10/13/17. Continue to monitor closely for signs of persistent infection. Chronic a-fib, rate controlled. Continue warfarin therapy with pharmacy to manage. Current INR 2.12. Continue home medications including Coreg and digoxin. Blood pressure stable. Continue home medications and continue to monitor closely. Continue Bumex 1mg BID and spironolactone 25mg daily for diuresis. Monitor daily weight closely for signs of fluid overload. Monitor urinary output closely via Rouse - currently stable. Bibasilar crackles noted on exam. Will obtain CXR now. May need additional diuresis. Encourage incentive spirometry. Hyponatremia noted today with Na 133. Will obtain urine sodium and creatine. Initiate fluid restriction at 1800cc. Will recheck labs in AM to monitor electrolytes and renal function. Significant hyperglycemia noted with blood sugars averaging 300, always >250. Home medication including Lantus 53 units in AM. Will increase Lantus to 57 units in AM and add Novolog 2 units at breakfast, Novolog 3 units at Lunch and Novolog 5 units at dinner. Monitor blood sugars closely for hypoglycemia or persistent hyperglycemia. Will adjust insulin as indicated. A1c 10.0%. Will consult Dr. Salgado for additional treatment recommendations and expertise. Appreciate his time and expertise. Continue bowel motivation. We will continue to follow him medically managed during her stay on the inpatient rehabilitation unit. At time of discharge medical care or return to PCP, Dr. Roa. Alfonso Garner MD Plan - 10/09/17 (Mirakian) Patient continues to have significant pain with movement secondary to right intertrochanteric femur fracture. Continue pain control and therapy as directed by Dr. Álvarez. Continue to provide safe and supportive environment. If patient is able to tolerate therapy, she may avoid surgery. Dr. Rdz following. CXR on 10/09 Continue current treatment of Vantin 200mg BID for UTI secondary to Citrobacter and klebsiella. Treatment course 10/06/17-10/13/17. Continue to monitor closely for signs of persistent infection. Patient remains afebrile. Chronic a-fib, rate controlled. Continue warfarin therapy with pharmacy to manage. Current INR 2.16. Continue home medications including Coreg and digoxin. Blood pressure stable. Continue home medications and continue to monitor closely. Continue Bumex 1mg BID and spironolactone 25mg daily for diuresis. Daily weight remains stable. Monitor urinary output closely via Rouse - currently stable. Persistent mild bibasilar crackles noted on exam without respiratory distress or cough. CXR on 10/09 revealed cardiomegaly and vascular congestion without overt CHF and moderate hiatal hernia. Encourage incentive spirometry. Persistent hyponatremia with Na 132. Urine sodium was 34 and urine creatine was 22.1. Will discuss with Dr. Gao. Continue fluid restriction at 1800cc. Will recheck labs in AM to monitor electrolytes and renal function. Renal function stable with SCr at 1.7 and BUN at 56. Baseline SCr 1.8-2.1. Continue to monitor. Persistent hyperglycemia noted. Dr. Salgado consulted and titrating insulin dosages slowly to avoid hypoglycemia. Goal blood sugars <180. Continue to monitor closely and appreciate his time and expertise. Patient has not had BM since admission. Will schedule senna plus to BID with miralax daily and give MOM now and PRN for aggressive bowel motivation. Patient denies pain and is passing gas. We will continue to follow her medically during her stay on the inpatient rehabilitation unit. At time of discharge medical care or return to PCP, Dr. Roa. Time spent with patient: 25 - 35 minutes Discharge Plan - Med Rec/Dispo Referrals/Follow Up: Alex Rdz MD [Physician] - (KIM Velasco on 11/06/2017 at 3:00 pm for follow-up. Check in at 2:30 pm to fill out paperwork. [facility] [address] [place] [address] [place] [address]) Ernie Roa MD [Physician] - (Dr. Nayana Roa on 10/29/2017 at 2:45 pm for Hosp. follow-up. [facility] [place] [id number]) Prescriptions: New Psyllium [Metamucil] 1 packet PO DAILY packet PEG 3350 17gm PACKET [Miralax] 17 gm PO DAILY packet Senna + Docusate [Senna Plus Tablet] 1 tab PO BID tab Milk of Magnesia [Mom] 30 ml PO DAILY PRN udc PRN Reason: Constipation Insulin Glargine,Hum.rec.anlog [Lantus] 62 unit SQ DAILY vial Insulin Aspart [NovoLOG] 4 unit SQ WL vial Insulin Aspart [NovoLOG] 7 unit SQ WS vial FentaNYL PATCH REMOVAL [Duragesic Patch Removal] 1 removal TD Q3D patch Fentanyl [Duragesic] 12 mcg TD Q3D #10 patch.td72 Hydrocodone/APAP 7.5/325 [Glenshaw 7.5/325] 1 - 2 tab PO Q4H PRN #40 tab PRN Reason: Pain Insulin Aspart [NovoLOG] 9 unit SQ WB vial Continue Allopurinol 100 mg PO DAILY #0 Multi-Vitamin Plain [Theragran] 1 tab PO DAILY Carvedilol [Coreg] 12.5 mg PO BIDWM Melatonin/Pyridoxine HCl (B6) [Melatonin 3 mg Tablet] 6 mg PO HS Simvastatin [Zocor] 10 mg PO HS Acetaminophen [Acetaminophen Extra Strength] 500 mg PO TID Digoxin 125 mcg PO 3XW Nystatin Powder [Mycostatin] 1 applicatio TP PRN PRN PRN Reason: Rash Spironolactone [Aldactone] 25 mg PO 3XW Docusate Sodium [Colace] 100 mg PO BID cap Senna + Docusate [Senna Plus Tablet] 1 tab PO BID PRN tab PRN Reason: Constipation Cholecalciferol (Vitamin D3) [Vitamin D3] 2,000 unit PO DAILY Bumetanide Tab [Bumex Tab] 1 mg PO BID Levothyroxine Tab [Synthroid] 100 mcg PO ACB Changed Warfarin Sodium [Coumadin] 4 mg PO .COMPLEX #0 Discontinued Insulin Glargine,Hum.rec.anlog [Lantus] 52 unit SQ DAILY #0 vial Mag-Al + Sim Oral Liq [Maalox Plus] 30 ml PO Q4HR PRN PRN Reason: Epigastric Distress Hydrocodone/APAP 5/325 [[place]haw 5/325] 1 - 2 tab PO Q4H PRN tab PRN Reason: Pain CephALEXin [Keflex] 1,000 mg PO BID 7 Days #28 cap Insulin Aspart [NovoLOG] 2 - 8 unit SQ SS PRN vial PRN Reason: Hyperglycemia Gl[place]haw 5 mg-acetaminophen 325 mg tablet 1 tab PO AM #30 tab - Disposition 03 To [facility]U Not [facility] ([facility])
--- NOTE | 2017-10-15 11:50 | Letter to Referring Physician ---
Dear Dr. Roa, This is a brief note to bring you up-to-date on the status of Bing Chaudhary and their stay on the acute inpatient rehabilitation unit at [facility]. As you are likely aware, this patient was admitted as an outpatient to the acute care hospital on 10/06/17 for right hip periprosthetic fracture. She was seen by Dr. Rdz. It was felt that this should heal up without operative intervention and for that reason it was chosen to treat her nonoperatively. The patient was stabilized and admitted to inpatient rehabilitation unit at [facility] on October 07, 2017. While on inpatient rehabilitation, this patient was seen by occupational therapy and physical therapy and improved overall in their functional ability. However pain management was an ongoing issue as well as her reduced cognition. She did have a urinary tract infection noted at the time of admission (not hospital-acquired) and this was treated. It is noted that her initial platelet count was 70,000 at the time of admission. It is 130,000 at the time of dismissal from IRU. We also monitored and managed the patient's diabetes while on Acute Rehab. Please see a copy of the history and physical examination as well as discharge summary enclosed with this letter for further details. We do recommend that the patient obtain a follow up CBC with differential and BMP in about 7 days after dismissal. We have not arranged this at the time of the Acute Rehab stay and will leave that to your discretion. Her current INR is 3.91. Her current dose of warfarin is 2 mg every Saturday, Saturday and Saturday and 4 mg all other days. The hospitalists have asked that warfarin be held today (Saturday) and a repeat INR be obtained tomorrow on with results to you. In addition, she continues to have evidence of an upper respiratory infection. Her lungs are clear. Primarily she has a loose cough and runny nose. She is being transferred to [facility] for continued physical therapy and occupational therapy on 10/16/2017. I did send her with a prescription for fentanyl patch 12 g #10 as well as hydrocodone with acetaminophen 7.5/325 mg one or two every 4 hours for breakthrough pain, #40 prescribed. Thank you for allowing us to be involved in this nice patient's care. Please contact me directly should you have any questions regarding their stay on the inpatient rehabilitation unit. Sincerely, Fadi Álvarez M.D.
--- NOTE | 2017-10-15 11:55 | Progress Note ---
- Date 10/15/17 Subjective: Patient is seen lying in her bed. She continues to have quite a bit of pain, even with minimal movement. She is currently on scheduled Tylenol, fentanyl patch, and PRN [place]. States she sleeps well at night as long she has pain medication prior to sleeping. Appetite has been okay. No bowel movement for 2 days. No chest pain or shortness of breath. Objective Vital signs: Temperature 97.7 F 10/15/17 08:00 Pulse Rate 67 10/15/17 08:00 Respiratory Rate 16 10/15/17 08:00 Blood Pressure 147/68 H 10/15/17 08:00 Pulse Oximetry 97 10/15/17 08:00 Height/Weight/BMI: Height 1.7 m Weight 81.8 kg Body Mass Index 27.1 - Constitutional Present: no acute distress, well nourished, well developed - Routine HEENT Exam Head: Present: normocephalic, atraumatic - Routine Respiratory Exam Present: CTA bilaterally. Absent: wheezes - Routine Cardiovascular Exam Present: RRR. Absent: murmur - Routine Abdominal Exam Present: soft, normoactive bowel sounds, non distended. Absent: tenderness - Routine Extremities Exam Present: no edema, normal capillary refill - Routine Skin Exam Present: dry, warm - Routine Neurological Exam Present: alert, oriented X3 - Routine Lymphatic Exam Lymphatic: Absent: adenopathy - Routine Psychiatric Exam Present: normal affect, cooperative Results - Labs CBC & Chem 7: 10/14/17 04:20 10/14/17 04:20 Assessment and Plan (1) Benign essential hypertension Current visit: No Status: Chronic (2) Type 2 diabetes mellitus Current visit: No Status: Chronic (3) Hip fracture, right Current visit: Yes Status: Acute (4) Renal insufficiency Problem details: I suspect this is due to diuretics in the presence of Mitral Regurgitation, and lower extremity venous insufficiency. Current visit: Yes Status: Acute (5) Venous insufficiency of both lower extremities Current visit: No Status: Chronic Assessment and Plan: Acute Medical History Hip Fracture right, acute - no surgery and conservative treatment per Dr. Rdz. UTI secondary to klebsiella and Citrobacter - Vantin BID 10/06/17 - 10/13/17. Hyponatremia, acute as of 10/08/17. Hyperglycemia secondary to uncontrolled diabetes type II - A1c 10.0%. Chronic Medical History Chronic kidney disease stage IV - baseline SCr 1.8-2.0. Mitral regurgitation. Venous insufficiency lower extremities. Hypertension. Chronic anticoagulation on Coumadin. Chronic a-fib. CHF with EF 65%. Sleep apnea. Diabetes mellitus type 2, uncontrolled. Constipation. Hypergammaglobulemia. Anxiety. Hypothyroid. Hyperlipidemia. Gout. Mnire's disease. Osteoarthritis. History of breast CA. Plan Persistent hyponatremia with Na down to 128 today. Continue fluid restriction at 1800cc. Will recheck labs in AM to monitor electrolytes and renal function.This will need to be followed closely after dismissal. She is on Bumex 1 mg twice a day and spironolactone on ,,. Dr. Hung has been adjusting insulin dosages. Patient has not had BM for 2 days. Start Miralax routinely given her narcotic use. Give MOM now. Discharge planned for tomorrow. - Physician Narrative Physician: Lj Gao MD Narrative: Date: 10/15/17 Time: 1700 Have independently interviewed and examined pt. Chart reviewed. Case discussed with my PA. Care plan developed with my supervision; agree with above. Doing okay. Pain still bothersome. Not having stool output. No nausea or ab pain. Has slight cough-not SOA or having pain with breathing. Lungs: decreased, no distress CV: regular AB: soft nt/nd BS present MSE: awake alert appropriate Plan: MOM given for bowel and Miralax added. Dulcolax if not having movement. Continue with pain control. Will add Mucinex DM BID to help cough. Continue with supportive care. Medically stable for IRU floor activities. Hospital Course Summary Disclaimer: The visit summary below is not to be considered part of the above Progress Note. Hospital Course: 10/08/17 13:42 Impression 1. Hip Fracture right 2 mitral regurgitation 3. Venous insufficiency lower extremities 4. renal insufficiency 5. Hypertension 6 sleep apnea 7 diabetes mellitus type 2 8. UTI Plan Right intertrochanteric femur fracture, requires physical therapy. If patient is able to tolerate therapy, she may avoid surgery. Orthopedics is to follow. Patient on warfarin, pharmacy consult. Vantin oral, 200 mg twice a day as Citrobacter and Klebsiella were noted in urine. Antibiotics to be continued through 10/13/2017. Blood pressure monitoring, continue current medications. Including Coreg and digitoxin. Diuretic continued, Aldactone. Blood sugar monitoring, continue Lantus 52 units daily. We will continue to follow him medically managed during her stay on the inpatient rehabilitation unit. At time of discharge medical care or return to PCP, Dr. Roa. Alfonso Garner MD Plan - 10/09/17 ([facility]) Patient continues to have significant pain with movement secondary to right intertrochanteric femur fracture. Continue pain control and therapy as directed by Dr. Álvarez. Continue to provide safe and supportive environment. If patient is able to tolerate therapy, she may avoid surgery. Dr. Rdz following. Continue current treatment of Vantin 200mg BID for UTI secondary to Citrobacter and klebsiella. Treatment course 10/06/17-10/13/17. Continue to monitor closely for signs of persistent infection. Chronic a-fib, rate controlled. Continue warfarin therapy with pharmacy to manage. Current INR 2.12. Continue home medications including Coreg and digoxin. Blood pressure stable. Continue home medications and continue to monitor closely. Continue Bumex 1mg BID and spironolactone 25mg daily for diuresis. Monitor daily weight closely for signs of fluid overload. Monitor urinary output closely via Rouse - currently stable. Bibasilar crackles noted on exam. Will obtain CXR now. May need additional diuresis. Encourage incentive spirometry. Hyponatremia noted today with Na 133. Will obtain urine sodium and creatine. Initiate fluid restriction at 1800cc. Will recheck labs in AM to monitor electrolytes and renal function. Significant hyperglycemia noted with blood sugars averaging 300, always >250. Home medication including Lantus 53 units in AM. Will increase Lantus to 57 units in AM and add Novolog 2 units at breakfast, Novolog 3 units at Lunch and Novolog 5 units at dinner. Monitor blood sugars closely for hypoglycemia or persistent hyperglycemia. Will adjust insulin as indicated. A1c 10.0%. Will consult Dr. Salgado for additional treatment recommendations and expertise. Appreciate his time and expertise. Continue bowel motivation. We will continue to follow him medically managed during her stay on the inpatient rehabilitation unit. At time of discharge medical care or return to PCP, Dr. Roa. Alfonso Garner MD Plan - 10/09/17 ([facility]) Patient continues to have significant pain with movement secondary to right intertrochanteric femur fracture. Continue pain control and therapy as directed by Dr. Álvarez. Continue to provide safe and supportive environment. If patient is able to tolerate therapy, she may avoid surgery. Dr. Rdz following. CXR on 10/09 Continue current treatment of Vantin 200mg BID for UTI secondary to Citrobacter and klebsiella. Treatment course 10/06/17-10/13/17. Continue to monitor closely for signs of persistent infection. Patient remains afebrile. Chronic a-fib, rate controlled. Continue warfarin therapy with pharmacy to manage. Current INR 2.16. Continue home medications including Coreg and digoxin. Blood pressure stable. Continue home medications and continue to monitor closely. Continue Bumex 1mg BID and spironolactone 25mg daily for diuresis. Daily weight remains stable. Monitor urinary output closely via Rouse - currently stable. Persistent mild bibasilar crackles noted on exam without respiratory distress or cough. CXR on 10/09 revealed cardiomegaly and vascular congestion without overt CHF and moderate hiatal hernia. Encourage incentive spirometry. Persistent hyponatremia with Na 132. Urine sodium was 34 and urine creatine was 22.1. Will discuss with Dr. Gao. Continue fluid restriction at 1800cc. Will recheck labs in AM to monitor electrolytes and renal function. Renal function stable with SCr at 1.7 and BUN at 56. Baseline SCr 1.8-2.1. Continue to monitor. Persistent hyperglycemia noted. Dr. Salgado consulted and titrating insulin dosages slowly to avoid hypoglycemia. Goal blood sugars <180. Continue to monitor closely and appreciate his time and expertise. Patient has not had BM since admission. Will schedule senna plus to BID with miralax daily and give MOM now and PRN for aggressive bowel motivation. Patient denies pain and is passing gas. We will continue to follow her medically during her stay on the inpatient rehabilitation unit. At time of discharge medical care or return to PCP, Dr. Roa.
[2017-10-15] MEDS: INSULIN ASPART 100unit/ml INJECTION SQ SCH ×2 (12:14→17:24)
--- NOTE | 2017-10-15 14:44 | Extended Care Facility Orders ---
Admission Orders Admit to:: Penitentiary Allergies/Adverse Reactions: Allergies losartan Allergy (Verified 10/07/17 18:30) gabapentin Adverse Reaction (Intermediate, Verified 10/07/17 18:30) dizziness, swelling in feet influenza virus vaccine, specific Adverse Reaction (Intermediate, Verified 10/07 18:30) Flu-like Symptoms Inactivated carvedilol Adverse Reaction (Unknown, Verified 10/07/17 18:30) Nausea and Vomiting ciprofloxacin Adverse Reaction (Unknown, Verified 10/07/17 18:30) Nausea and Vomiting, Weight loss diltiazem Adverse Reaction (Unknown, Verified 10/07/17 18:30) Nausea and Vomiting indomethacin Adverse Reaction (Unknown, Verified 10/07/17 18:30) Nausea and Vomiting oxycodone Adverse Reaction (Unknown, Verified 10/07/17 18:30) Nausea and Vomiting sitagliptin [From Januvia] Adverse Reaction (Unknown, Verified 10/07/17 18:30) Nausea and Vomiting Sulfa (Sulfonamide Antibiotics) Adverse Reaction (Unknown, Verified 10/07/17 18: 30) Nausea and Vomiting benazepril Adverse Reaction (Verified 10/07/17 18:30) Nausea and vomiting metoprolol [From Toprol XL] Adverse Reaction (Verified 10/07/17 18:30) Nausea and vomiting Admitting Diagnosis: Rt hip periprosthetic fx Admitting Physician: Fadi Álvarez MD Attending Physician: Fadi Álvarez MD Code Status: Do Not Resuscitate Anticiapted Length of Stay: 30 days or less Rehab Potential: fair Rehab Prognosis: fair Diet: 10/07/17 Dinner Consistent Carbohydrate Diet [DIET] Calorie Level: 2000 Sodium Restriction: 2GRAM Wound/Incision Care: N/A May use Facility Protocol or Standing Orders: Yes May have flu vaccine: Yes Evaluations/Treatment: PT, OT Penitentiary Certification: I certify that SNF services are required to be given on an Inpatient basis because of the patients need for penitentiary care on a continuing basis for the condition(s) for which he/she received inpatient hospital services prior to his/her transfer to the SNF. SNF inpatient care is necessary for the following reasons: Reduction in fall risk, monitoring blood sugars to avoid hypoglycemia or excessive hyperglycemia, administration of appropriate pain medication to allow her to participate in therapy. Indication for Penitentiary: Diabetic Education, Other (Pain management) - Additional Information In Event of Arrest: Do Not Start CPR Resident is Aware of Diagnosis: Yes Referrals: Alex Rdz MD [Physician] - (KIM Velasco on 11/06/2017 at 3:00 pm for follow-up. Check in at 2:30 pm to fill out paperwork. [facility] [address] [place] [address] [place] [id number]) Ernie Roa MD [Physician] - (Dr. Nayana Roa on 10/29/2017 at 2:45 pm for Hosp. follow-up. [address] [address]) Additional Orders: Patient has a recent right periprosthetic fracture. It was elected to treat her nonoperatively. She will continue to have pain in the right hip until this is healed. Continue working on slide board transfers and wheelchair propulsion until she is able to ambulate. Per Dr. Rdz, she can be touch weightbearing with a flatfoot on the right leg. However her pain precludes her from ambulating at present.
[2017-10-15] MEDS ORDERED: BISACODYL 10 MG SUPPOSITORY RECTALLY PRN (16:59)
[2017-10-15] MEDS ORDERED: POLYETHYL GLYCOL 3350 17gm PACKET PO ONE (17:30)
[2017-10-15] MEDS: GUAIFENESIN/D-METHORPHAN 600mg/30mg TABLET PO SCH (20:26)
[2017-10-15] MEDS: MELATONIN 5 MG TABLET PO SCH (20:26)
[2017-10-15] MEDS: SIMVASTATIN 10 MG TABLET PO SCH (20:27)
[2017-10-16] MEDS: HYDROCODONE/APAP 7.5 MG/325 MG TABLET PO PRN ×3 (00:44→10:15)
[2017-10-16] MEDS: LEVOTHYROXINE 100 MCG TABLET PO SCH ×2 (04:56→08:32)
--- NOTE | 2017-10-16 07:36 | Endocrinology Progress Note ---
Subjective Principal diagnosis: Type 2 Diabetes Mellitus, uncontrolled Interval history: Reports slow progress with therapy. Worried about how she will do at home alone. Sugars still improving without hypoglycemia. Exam Vital signs: Temperature 97.7 F 10/15/17 20:18 Pulse Rate 65 10/15/17 20:18 Respiratory Rate 20 10/15/17 20:18 Blood Pressure 107/57 10/15/17 20:18 Pulse Oximetry 100 10/15/17 20:18 - Constitutional no acute distress - Routine HEENT Exam Head: Present: normocephalic, atraumatic Eye: Present: PERRL ENT: Present: mucous membranes moist - Routine Neck Exam Absent: lymphadenopathy, thyromegaly - Routine Respiratory Exam Absent: dyspnea - Routine Cardiovascular Exam Present: RRR - Routine Abdominal Exam Present: normoactive bowel sounds - Routine Extremities Exam Absent: edema - Routine Skin Exam Present: dry, warm - Routine Neurological Exam Present: alert, oriented X3, moving all extremities - Routine Psychiatric Exam Present: normal affect, normal thought process, good insight, good judgment - Additional findings Additional findings: Laboratory Tests 10/15/17 10/15/17 10/15/17 10:05 15:31 19:42 Glucose Glucometer 229 216 233 10/16/17 04:51 Glucose 75 Glucometer Assessment and Plan (1) Type 2 diabetes mellitus with hyperglycemia Current visit: Yes Status: Chronic Still uncontrolled after breakfast, but Novolog may have been held when FBS was <110 (?), allowing glucose to rise unnecessarily. Will change parameter to <70 and add 1 more unit in AM. Goal of treating diabetes is not to hold insulin once achieving control; rather the insulin should be delivered to try to maintain control.
[2017-10-16] MEDS ORDERED: INSULIN ASPART 100unit/ml INJECTION SQ SCH (07:38)
[2017-10-16 08:44] VITALS: BP 130/70; RESP 18; TEMP 98.3; O2SAT 98
[2017-10-16] MEDS: SALINE FLUSH 10ml SYRINGE IV PRN (08:58)
[2017-10-16] MEDS: INSULIN GLARGINE 100unit/ml INJECTION SQ SCH (08:58)
[2017-10-16] MEDS: DOCUSATE SODIUM 100 MG CAPSULE PO SCH ×2 (08:59→09:54)
[2017-10-16] MEDS: ACETAMINOPHEN 500 MG TABLET PO SCH (08:59)
[2017-10-16] MEDS: SPIRONOLACTONE 25 MG TABLET PO SCH (08:59)
[2017-10-16] MEDS: BUMETANIDE 1 MG TABLET PO SCH (08:59)
[2017-10-16] MEDS ORDERED: POLYETHYL GLYCOL 3350 17gm PACKET PO SCH (09:00)
[2017-10-16] MEDS: DIGOXIN 125 MCG TABLET PO SCH (09:00)
[2017-10-16] MEDS: PSYLLIUM PACKET PO SCH ×2 (09:00→09:54)
[2017-10-16] MEDS: MULTI-VITAMIN PLAIN TABLET PO SCH (09:00)
[2017-10-16] MEDS: SENNA + DOCUSATE TABLET PO SCH ×2 (09:00→09:54)
[2017-10-16] MEDS: CARVEDILOL 12.5 MG TABLET PO SCH (09:00)
[2017-10-16] MEDS: GUAIFENESIN/D-METHORPHAN 600mg/30mg TABLET PO SCH (09:01)
[2017-10-16] MEDS: ALLOPURINOL 100 MG TABLET PO SCH (09:01)
[2017-10-16 09:02] VITALS: PULSE 70
[2017-10-16] MEDS ORDERED: FALL RISK - PHARMACY CONSULT XX ONE (10:09)
[2017-10-16] MEDS: INSULIN ASPART 100unit/ml INJECTION SQ PRN (10:13)
--- NOTE | 2017-10-16 10:46 | IRU Progress Note ---
- Subjective/Serverity of Illness Date: 10/16/17 Patient was interviewed and examined in her room on inpatient rehabilitation prior to her dismissal today. She continues to have a cough without sputum as well as a runny nose. Her lungs sound clear. She states that her pain is doing better although she is concerned about [facility] and dealing with the pain. She is on a fentanyl patch as well as hydrocodone for breakthrough pain. She is not running a fever. Her appetite is good she states. Exam Vital Signs: Temperature 98.3 F 10/16/17 08:00 Pulse Rate 70 10/16/17 09:00 Respiratory Rate 18 10/16/17 08:00 Blood Pressure 130/70 10/16/17 08:00 Pulse Oximetry 98 10/16/17 08:00 Height/Weight/BMI: Height 1.7 m Weight 75.1 kg Body Mass Index 27.1 - Constitutional Present: well nourished, well developed, cooperative - Routine HEENT Exam Eye: Present: EOMI ENT: Present: mucous membranes moist, dentition normal - Routine Neck Exam Present: supple - Routine Respiratory Exam Present: CTA bilaterally. Absent: dyspnea, respiratory distress, wheezes, crackles - Routine Cardiovascular Exam Present: S1, S2, irregularly irregular. Absent: murmur, S3, S4 - Routine Abdominal Exam Present: soft, normoactive bowel sounds, non distended. Absent: tenderness - Routine Extremities Exam Present: no edema. Absent: cyanosis, clubbing Results IRU - Labs Labs: INR reviewed. IRU A/P (1) Hip fracture, right Qualifiers: Encounter type: subsequent encounter Fracture type: closed Fracture healing: with routine healing Qualified Code(s): S72.001D - Fracture of unspecified part of neck of right femur, subsequent encounter for closed fracture with routine healing Current visit: Yes Status: Acute Pain continues to be an issue but I think we are doing as well as we can with the fentanyl patch plus hydrocodone as needed. Oversedation is to be avoided as well. (2) Renal insufficiency Problem details: I suspect this is due to diuretics in the presence of Mitral Regurgitation, and lower extremity venous insufficiency. Current visit: Yes Status: Acute (3) Venous insufficiency of both lower extremities Current visit: No Status: Chronic (4) Type 2 diabetes mellitus Qualifiers: Diabetes mellitus complication status: with hyperglycemia Diabetes mellitus snf insulin use: with snf use Qualified Code(s): E11.65 - Type 2 diabetes mellitus with hyperglycemia; Z79.4 - assisted (current) use of insulin; Z79.4 - assisted (current) use of insulin; Z79.4 - intermediate teacher ( current) use of insulin; Z79.4 - assisted (current) use of insulin Current visit: No Status: Chronic Dr. Salgado's note reviewed. (5) Benign essential hypertension Current visit: No Status: Chronic DVT Prophylaxis: SCD's Resuscitation Status: Do Not Resuscitate - Course Hospital Course: Fadi Álvarez MD: 10/08/17 10:38 She is just getting started with therapy. Significant pain with any movement. Working on sliding board transfers. She is hard of hearing but so far no definite evidence of confusion. 10/09/17 11:53 Working with therapy but having a lot of pain. Started on Vantin. Pain management continues to be a significant issue. Does have a cough for 1 week with some discolored sputum. However lungs are clear. 10/11/17 11:33 Making some progress with therapy. Pain continues to be a barrier. Medically she seems to be stable. Blood sugars improved. 10/14/17 11:27 Blood sugars are better. Medically she is stable. Pain management is improved. 10/15/17 11:15 Slow progress with therapy. Blood sugars improved. Anticipate transfer to jail tomorrow. 10/16/17 10:46 She is transferred to jail today for continued skilled care. - Interventions to Obtain Goals PT Treatment Plan: Balance/Proprioception, Functional Activities, Gait Training , Patient/Family Education OT Treatment Plan: ADL (Basic Care), Balance Training, Pt./Family Education, Ther. Exercise for ADL
== END 2017-10-16 10:40 | DRG 560 ==
PROVIDERS: ADMIT Internal Medicine; ATTEND Internal Medicine